=== PATIENT | female | born 1975 | race Caucasian/White ===

== ENCOUNTER → 2020-06-26 | Outpatient (CLI) | payer MEDICARE, OTHER ==
[~2020-06-26] MED LIST: ALBU90OI6 INH; BACL10 PO; CHOL10002 PO; CYCL10 PO; FENTANYL1 EAC1 TOP; FERROUS SULFATE PO; FLAX PO; FLUC150A PO; GLUC500 PO; Hair, Skin & N1 EACH PO; IRON150C PO; Klor-Con 1010 MEQ PO; LAMO100 PO; LAMO25 PO; LATUDA20 MG PO; LISHYD2025 PO; Lecithin-191200 MG PO; MIGRANAL INH; MORP15ER PO; MORP30 PO; NIAC250ER PO; NIAC500 PO; PREG150 PO; PRODEXEL PO; QNASL8.7 GM; RANI150 PO; TOPI100 PO; Tylenol325 MG PO; VITAMIN D PO; VITAMIN D-32000 UNIT PO; ZESTORETIC 20-251 EA; Zithromax250 MG PO; [UNRECOGNIZED DRUG - OTHER] IJ
== END | disposition home or self-care (01) ==
LOC: LAB SHORT 19:21 → LAB EV 19:21
DX: L02.415 Cutaneous abscess of right lower limb (principal)
CPT/HCPCS: 87070; 87075; 87077; 87147; 87186; 87205

== ENCOUNTER → 2021-06-03 | Outpatient (CLI) | payer MEDICARE, OTHER ==
[2021-06-03 16:57] LABS: BASOPHILS PERCENT AUTO 1 % (0-2); EOSINOPHILS ABSOLUTE AUTO 0.46 K/mm3 (0.00-0.68); EOSINOPHILS PERCENT AUTO 5 % (0-6); Hemoglobin 14.4 g/dL (11.5-16.0); IMMATURE GRAN ABSOLUTE AUTO 0.03 K/mm3 (0.00-0.10); IMMATURE GRAN PERCENT AUTO 0 % (0-1); LYMPHOCYTES ABSOLUTE AUTO 1.94 K/mm3 (0.84-5.20); LYMPHOCYTES PERCENT AUTO 23 % (21-46); MONOCYTES ABSOLUTE AUTO 0.65 K/mm3 (0.16-1.47); MONOCYTES PERCENT AUTO 8 % (4-13); Mean Corpuscular HGB 30.9 pg (26.0-34.0); Mean Corpuscular HGB Conc 32.7 g/dL (31.5-36.5); Mean Corpuscular Volume 94 fL (80-100); Mean Platelet Volume 9.5 fL (9.1-12.4); NEUTROPHILS PERCENT AUTO 63 % (41-73); Platelet Count 260 K/mm3 (150-400); RDW Coefficient Variation 14.4 % (11.7-14.2); RDW Standard Deviation 50.4 fL (35.1-46.3); Red Blood Cell Count 4.66 M/mm3 (3.80-5.20); White Blood Cell Count 8.58 K/mm3 (4.00-11.30)
[2021-06-03 17:10] LABS: Albumin, Blood 3.3 g/dL (3.4-5.0); Albumin/Globulin Ratio 0.9 (0.8-1.8); Bilirubin, Total 0.2 mg/dL (0.1-1.0); Bun/Creatinine Ratio 9.2 (12.0-20.0); Calcium, Blood 8.3 mg/dL (8.5-10.1); Creatinine, Blood 1.3 mg/dL (0.40-1.00); Globulin, Blood 3.5 g/dL (2.2-4.0); Potassium, Blood 3.8 mmol/L (3.5-5.5); Total Protein, Blood 6.8 g/dL (6.4-8.2)
== END | disposition home or self-care (01) ==
LOC: LAB SHORT 16:52 → LAB 16:52
PROVIDERS: Family Medicine
DX: I10 Essential (primary) hypertension (principal)
CPT/HCPCS: 80053; 85025

== ENCOUNTER 2021-12-27 21:07 | Emergency (ER) | payer OTHER ==
[~2021-12-27] VITALS: Ht 160 cm; Wt 74.8 kg
[2021-12-27 21:36] LABS: Source, Urine Clean Catch
[2021-12-27] MEDS ORDERED: BACL20 PO (21:40)
[2021-12-27 21:41] LABS: Bilirubin, Urine Neg (Neg); Blood, Urine Neg (Neg); Glucose Qualitative, Urine Neg (Neg); Ketones, Urine Neg (Neg); Leukocyte Esterase, Urine Neg (Neg); Nitrite, Urine Neg (Neg); Protein, Urine Neg (Neg); Specific Gravity, Urine 1.005 (1.003-1.022); Urobilinogen, Urine NORM (Normal)
[2021-12-27] MEDS ORDERED: [UNRECOGNIZED DRUG - OTHER] PO (21:44)
[2021-12-27] MEDS ORDERED: INDERAL XL80 M1 PO (21:45)
[2021-12-27] MEDS ORDERED: CELE200 PO (21:45)
[2021-12-27] MEDS ORDERED: [UNRECOGNIZED DRUG - OTHER] PO (21:47)
[2021-12-27 21:54] LABS: Appearance, Urine Clear (Clear); Color, Urine Yellow (P-Yellow)
[2021-12-27 21:56] LABS: BASOPHILS PERCENT AUTO 1 % (0-2); EOSINOPHILS ABSOLUTE AUTO 0.24 K/mm3 (0.00-0.68); EOSINOPHILS PERCENT AUTO 2 % (0-6); Hematocrit 41.6 % (33.0-51.0); Hemoglobin 13.5 g/dL (11.5-16.0); IMMATURE GRAN ABSOLUTE AUTO 0.02 K/mm3 (0.00-0.10); IMMATURE GRAN PERCENT AUTO 0 % (0-1); LYMPHOCYTES ABSOLUTE AUTO 1.76 K/mm3 (0.84-5.20); LYMPHOCYTES PERCENT AUTO 17 % (21-46); MONOCYTES ABSOLUTE AUTO 0.87 K/mm3 (0.16-1.47); MONOCYTES PERCENT AUTO 9 % (4-13); Mean Corpuscular HGB 30.7 pg (26.0-34.0); Mean Corpuscular HGB Conc 32.5 g/dL (31.5-36.5); Mean Corpuscular Volume 95 fL (80-100); Mean Platelet Volume 9.7 fL (9.1-12.4); NEUTROPHILS ABSOLUTE AUTO 7.15 K/mm3 (1.96-9.15); NEUTROPHILS PERCENT AUTO 70 % (41-73); Platelet Count 296 K/mm3 (150-400); RDW Coefficient Variation 13.6 % (11.7-14.2); RDW Standard Deviation 47.8 fL (35.1-46.3); White Blood Cell Count 10.14 K/mm3 (4.00-11.30)
[2021-12-27 22:09] LABS: Albumin, Blood 2.9 g/dL (3.4-5.0); Albumin/Globulin Ratio 0.8 (0.8-1.8); Bilirubin, Total 0.1 mg/dL (0.1-1.0); Bun/Creatinine Ratio 12.4 (12.0-20.0); Calcium, Blood 8.2 mg/dL (8.5-10.1); Creatinine, Blood 1.13 mg/dL (0.40-1.00); Globulin, Blood 3.6 g/dL (2.2-4.0); Potassium, Blood 4.1 mmol/L (3.5-5.5); Total Protein, Blood 6.5 g/dL (6.4-8.2)
== END 2021-12-28 02:00 | disposition home or self-care (01) ==
LOC: ER 21:07
PROVIDERS: Emergency Medicine
DX: N20.0 Calculus of kidney (principal); Z88.6 Allergy status to analgesic agent; Z88.8 Allergy status to other drugs, medicaments and biological substances; Z88.5 Allergy status to narcotic agent; Z79.899 Other long term (current) drug therapy; I10 Essential (primary) hypertension; G43.909 Migraine, unspecified, not intractable, without status migrainosus; F17.210 Nicotine dependence, cigarettes, uncomplicated
CPT/HCPCS: 74176; 80053; 81003; 85025; 96374; 96375; 99284-25; A9270; J1170; J1885; J2405; J7030

== ENCOUNTER 2022-05-12 11:06 | Emergency (ER) | payer OTHER ==
[~2022-05-12] VITALS: Ht 160 cm; Wt 70.3 kg
[~2022-05-12 11:06] MED LIST changes: +BACL20 PO; +CELE200 PO; +CEPH500 PO; +INDERAL XL80 M1 PO; +[UNRECOGNIZED DRUG - OTHER] PO; +[UNRECOGNIZED DRUG - OTHER] PO
[2022-05-12 13:27] LABS: BASOPHILS ABSOLUTE AUTO 0.09 K/mm3 (0.00-0.23); BASOPHILS PERCENT AUTO 1 % (0-2); EOSINOPHILS ABSOLUTE AUTO 0.31 K/mm3 (0.00-0.68); EOSINOPHILS PERCENT AUTO 4 % (0-6); Hematocrit 37.8 % (33.0-51.0); Hemoglobin 11.8 g/dL (11.5-16.0); IMMATURE GRAN ABSOLUTE AUTO 0.07 K/mm3 (0.00-0.10); IMMATURE GRAN PERCENT AUTO 1 % (0-1); LYMPHOCYTES ABSOLUTE AUTO 1.65 K/mm3 (0.84-5.20); LYMPHOCYTES PERCENT AUTO 19 % (21-46); MONOCYTES ABSOLUTE AUTO 0.73 K/mm3 (0.16-1.47); MONOCYTES PERCENT AUTO 9 % (4-13); Mean Corpuscular HGB 30.3 pg (26.0-34.0); Mean Corpuscular HGB Conc 31.2 g/dL (31.5-36.5); Mean Corpuscular Volume 97 fL (80-100); NEUTROPHILS ABSOLUTE AUTO 5.69 K/mm3 (1.96-9.15); NEUTROPHILS PERCENT AUTO 67 % (41-73); Platelet Count 414 K/mm3 (150-400); RDW Coefficient Variation 14.6 % (11.7-14.2); RDW Standard Deviation 51.3 fL (35.1-46.3); Red Blood Cell Count 3.89 M/mm3 (3.80-5.20); White Blood Cell Count 8.54 K/mm3 (4.00-11.30)
[2022-05-12 13:50] LABS: Albumin, Blood 2.6 g/dL (3.4-5.0); Albumin/Globulin Ratio 0.6 (0.8-1.8); Bilirubin, Total 0.2 mg/dL (0.1-1.0); Bun/Creatinine Ratio 14.7 (12.0-20.0); Calcium, Blood 8.3 mg/dL (8.5-10.1); Creatinine, Blood 1.16 mg/dL (0.40-1.00); Globulin, Blood 4.1 g/dL (2.2-4.0); Potassium, Blood 4.2 mmol/L (3.5-5.5); Total Protein, Blood 6.7 g/dL (6.4-8.2)
[2022-05-12] MEDS ORDERED: XARELTO15 MG PO (16:12)
== END 2022-05-12 16:30 | disposition home or self-care (01) ==
LOC: ER 11:06
PROVIDERS: Student in an Organized Health Care Education/Training Program
DX: I82.412 Acute embolism and thrombosis of left femoral vein (principal); I82.432 Acute embolism and thrombosis of left popliteal vein; I82.442 Acute embolism and thrombosis of left tibial vein; I82.452 Acute embolism and thrombosis of left peroneal vein; I82.492 Acute embolism and thrombosis of other specified deep vein of left lower extremity; I82.812 Embolism and thrombosis of superficial veins of left lower extremity; I10 Essential (primary) hypertension; F17.210 Nicotine dependence, cigarettes, uncomplicated; Z79.899 Other long term (current) drug therapy; Z88.6 Allergy status to analgesic agent; Z88.5 Allergy status to narcotic agent; Z88.8 Allergy status to other drugs, medicaments and biological substances
CPT/HCPCS: 71260; 80053; 85025; 93971; A9270; Q9967

== ENCOUNTER 2022-06-02 06:05 | Day surgery (SDC) | payer OTHER ==
[~2022-06-02] VITALS: Ht 160 cm; Wt 68.6 kg
[~2022-06-02 06:05] MED LIST changes: +XARELTO15 MG PO
--- NOTE | 2022-06-02 12:32 | NUR ---
PURSE STRING SUTURE REMOVED, SITE STABLE. PT GETTING DRESSED AT THIS TIME.
--- NOTE | 2022-06-02 12:41 | NUR ---
PT DRESSED, L POP SITE STABLE AND WITHOUT BLEEDING. DISCHARGE REVIEWED WITH PT, VERBALIZES UNDERSTANDING OF INSTRUCTIONS. SALINE LOCK REMOVED WITH CATHETER INTACT. MTM CALLED AND PICKUP ARRANGED FOR 1 PM. NO FURTHER QUESTIONS AT THIS TIME FROM PT.
--- NOTE | 2022-06-02 12:55 | NUR ---
PT DISCHARGED PER W/C. PT ALSO CALLED AND VOICEMAIL LEFT AND INSTRUCTED PT TO BE SURE TO TAKE BOTH DOSES OF HER XARELTO TODAY.
== END 2022-06-02 12:40 | disposition home or self-care (01) ==
LOC: MHTC 06:05
DX: I82.432 Acute embolism and thrombosis of left popliteal vein (principal); I82.412 Acute embolism and thrombosis of left femoral vein; I82.422 Acute embolism and thrombosis of left iliac vein; I82.442 Acute embolism and thrombosis of left tibial vein; I82.452 Acute embolism and thrombosis of left peroneal vein; I12.9 Hypertensive chronic kidney disease with stage 1 through stage 4 chronic kidney disease, or unspecified chronic kidney disease; N18.9 Chronic kidney disease, unspecified; J45.909 Unspecified asthma, uncomplicated; F17.210 Nicotine dependence, cigarettes, uncomplicated; Z88.8 Allergy status to other drugs, medicaments and biological substances; Z88.6 Allergy status to analgesic agent
CPT/HCPCS: 76937; 84703; 85347; A9270; C1725; C1753; C1757; C1769; C1876; C1887; C1894; J1100; J1644; J2370; J2405; J2704; J3010; J7030; Q9967

== ENCOUNTER 2022-12-04 19:16 | Inpatient (IN) | payer MEDICARE, OTHER ==
[~2022-12-04] VITALS: Ht 160 cm; Wt 53.0 kg
--- NOTE | 2022-12-04 02:57 | NUR ---
ASSUMED CARE PT ARRIVED ON UNIT RESPONDING ONLY TO PAINFUL STIMULI. WITH RR SITTING AROUND 4-7 W/ PERIODS OF APNEA. 10L ON THE NON-REBREATHER AND MOVED TO 3L NC W/ ET CO2; MAINTAINING SPO2 >92%. PUPILS WERE DILATED AT A 5-6 AND RESPONDED SLUGGISHLY. HR WAS BORDERLINE 50'S AND DIPPING INTO THE 40'S. LEVOPHED INITIALLY AT 5MCG/MIN AND ENDED UP BEING TITRATED UP TO 20MCG/MIN W/ VASOPRESSIN ALSO ADDED. CURRENTLY AT 15MCG/MIN IN ADDITION TO VASOPRESSIN W/ MAP >65. PT WAS SEEN BY DR. QUIJANO AND WAS GIVEN SEVERAL DOSES OF NARCAN W/ SOME EFFECT. CENTRAL LINE WAS PLACED. SEVERAL MEDICATIONS STARTED AND PT NOT CURRENTLY HAS A RR 13-15 W/ HR NSR IN THE 60'S. REYNOLDS CATHETER WAS PLACED W/ THICK (SLUDGE-LIKE) YELLOW/DARK YELLOW URINE.
[~2022-12-04 19:16] MED LIST changes: +ANORO ELLIPTA1 EAC1 INH; +CAMRESE LO TAB1 EAC1 PO; +DIHYDROERGO1 MG/1 M1 INH; -INDERAL XL80 M1 PO; -MIGRANAL INH; +MUPIROCIN22 G9 TOP; +Norco 5-325 Ta1 EACH PO; +PROP60 PO; +Ventolin/Prove6.7 GM INH; +XARELTO20 MG PO
[2022-12-04 20:14] LABS: BASOPHILS ABSOLUTE AUTO 0.06 K/mm3 (0.00-0.23); BASOPHILS PERCENT AUTO 0 % (0-2); EOSINOPHILS ABSOLUTE AUTO 0.07 K/mm3 (0.00-0.68); EOSINOPHILS PERCENT AUTO 1 % (0-6); Hematocrit 23.8 % (33.0-51.0); Hemoglobin 7.5 g/dL (11.5-16.0); IMMATURE GRAN ABSOLUTE AUTO 0.26 K/mm3 (0.00-0.10); IMMATURE GRAN PERCENT AUTO 2 % (0-1); LYMPHOCYTES ABSOLUTE AUTO 1.34 K/mm3 (0.84-5.20); LYMPHOCYTES PERCENT AUTO 9 % (21-46); MONOCYTES ABSOLUTE AUTO 1.07 K/mm3 (0.16-1.47); MONOCYTES PERCENT AUTO 7 % (4-13); Mean Corpuscular HGB 28.5 pg (26.0-34.0); Mean Corpuscular HGB Conc 31.5 g/dL (31.5-36.5); Mean Corpuscular Volume 91 fL (80-100); NEUTROPHILS ABSOLUTE AUTO 12.03 K/mm3 (1.96-9.15); NEUTROPHILS PERCENT AUTO 81 % (41-73); RDW Coefficient Variation 15.3 % (11.7-14.2); RDW Standard Deviation 50.5 fL (35.1-46.3); Red Blood Cell Count 2.63 M/mm3 (3.80-5.20); White Blood Cell Count 14.83 K/mm3 (4.00-11.30)
[2022-12-04 20:18] LABS: Mean Platelet Volume 10.3 fL (9.1-12.4); Platelet Count 461 K/mm3 (150-400)
[2022-12-04 20:47] LABS: Alanine Aminotransfer (ALT/SGP 18 U/L (12-78); Albumin, Blood 1.5 g/dL (3.4-5.0); Albumin/Globulin Ratio 0.3 (0.8-1.8); Alk Phos 95 U/L (50-136); Anion Gap 10 mmol/L (6-16); Aspartate Aminotrans (AST/SGOT 29 U/L (12-37); Bilirubin, Total 0.4 mg/dL (0.1-1.0); Blood Urea Nitrogen 54 mg/dL (8-24); Bun/Creatinine Ratio 30.3 (12.0-20.0); CO2, Blood 18 mmol/L (21-32); Calcium, Blood 8.4 mg/dL (8.5-10.1); Chloride, Blood 110 mmol/L (98-108); Creatinine, Blood 1.78 mg/dL (0.40-1.00); Globulin, Blood 5.2 g/dL (2.2-4.0); Glomerular Filtration Rate 35 (60-); Glucose, Blood 89 mg/dL (70-99); Potassium, Blood 3.2 mmol/L (3.5-5.5); Sodium, Blood 138 mmol/L (136-145); Total Protein, Blood 6.7 g/dL (6.4-8.2); Triiodothyronine, Free <0.50 pg/mL (2.18-3.98)
[2022-12-04 20:50] LABS: PCO2 Arterial 31.7 mmHg (35-45); PO2 Arterial 328 mmHg (80-100); pH Blood Arterial 7.32 (7.35-7.45)
[2022-12-04 21:08] LABS: Source, Urine Straight Cath
[2022-12-04 21:14] LABS: Appearance, Urine Turbid (Clear); Bilirubin, Urine Neg (Neg); Blood, Urine 5+ (Neg); Color, Urine Amber (P-Yellow); Glucose Qualitative, Urine Neg (Neg); Ketones, Urine 1+ (Neg); Leukocyte Esterase, Urine 3+ (Neg); Nitrite, Urine Neg (Neg); Protein, Urine 3+ (Neg); Urobilinogen, Urine NORM (Normal)
[2022-12-04 21:36] LABS: Bacteria Many /hpf; Squamous Epithelial Cells Rare /hpf (Few); White Blood Cells, Urine TNTC /hpf (0-5)
[2022-12-04 21:56] LABS: U Amphetamine Screen Not Detected; U Barbituate Screen Not Detected; U Benzodiazapine Screen Not Detected; U Buprenorphine Screen Not Detected; U Cannabinoids Screen Not Detected; U Cocaine Screen Not Detected; U Methadone Screen Not Detected; U Methamphetamine Screen Not Detected; U Opiates Screen Not Detected; U Oxycodone Screen Not Detected; U Phencyclidine Screen Not Detected; U Propoxyphene Screen Not Detected
[2022-12-04 23:38] LABS: Source, Urine Foley catheter
[2022-12-04 23:42] LABS: Appearance, Urine Cloudy (Clear); Bilirubin, Urine Neg (Neg); Blood, Urine 5+ (Neg); Color, Urine Yellow (P-Yellow); Glucose Qualitative, Urine Neg (Neg); Ketones, Urine 1+ (Neg); Leukocyte Esterase, Urine 3+ (Neg); Nitrite, Urine Pos (Neg); Protein, Urine 3+ (Neg); Specific Gravity, Urine 1.015 (1.003-1.022); Urobilinogen, Urine NORM (Normal)
[2022-12-04 23:59] LABS: White Blood Cells, Urine TNTC /hpf (0-5)
[2022-12-05] LABS: Amorphous Light (0-Heavy); Bacteria Many /hpf; Squamous Epithelial Cells Not Seen /hpf (Few)
[2022-12-05 01:23] LABS: PO2 Arterial 111 mmHg (80-100); pH Blood Arterial 7.33 (7.35-7.45)
--- NOTE | 2022-12-05 03:10 | NUR ---
UPDATE IN ADDITION TO THE PREVIOUS NOTE, W/ STIMULATION THE PT MAKES AN UNUSUAL MOVEMENT THAT THE ER DOCTOR THOUGHT WAS A SEIZURE PER REPORT. PT OPENS EYES WIDE AND CLOSES RHYTHMICALLY AND HAS OUTWARD POSTURING OF ARMS WHILE BENT 90 DEGREE'S. PT'S LEGS ALSO FLEX 90 DEGREE'S.
--- NOTE | 2022-12-05 03:15 | NUR ---
UPDATE DAUGHTERS AT BEDSIDE. ASKS QUESTIONS AND IS INTERESTED IN CARE BEING PERFORMED. HAS EXPRESSED DESIRE TO KEEP MOM FULL CODE AT THIS TIME.
[2022-12-05 03:56] LABS: BASOPHILS ABSOLUTE AUTO 0.05 K/mm3 (0.00-0.23); BASOPHILS PERCENT AUTO 0 % (0-2); EOSINOPHILS ABSOLUTE AUTO 0.01 K/mm3 (0.00-0.68); EOSINOPHILS PERCENT AUTO 0 % (0-6); Hematocrit 22.6 % (33.0-51.0); Hemoglobin 7.3 g/dL (11.5-16.0); IMMATURE GRAN ABSOLUTE AUTO 0.18 K/mm3 (0.00-0.10); IMMATURE GRAN PERCENT AUTO 1 % (0-1); LYMPHOCYTES ABSOLUTE AUTO 0.92 K/mm3 (0.84-5.20); LYMPHOCYTES PERCENT AUTO 5 % (21-46); MONOCYTES ABSOLUTE AUTO 1.11 K/mm3 (0.16-1.47); MONOCYTES PERCENT AUTO 7 % (4-13); Mean Corpuscular HGB 29.1 pg (26.0-34.0); Mean Corpuscular HGB Conc 32.3 g/dL (31.5-36.5); Mean Corpuscular Volume 90 fL (80-100); Mean Platelet Volume 10.2 fL (9.1-12.4); NEUTROPHILS ABSOLUTE AUTO 14.88 K/mm3 (1.96-9.15); NEUTROPHILS PERCENT AUTO 87 % (41-73); Platelet Count 481 K/mm3 (150-400); RDW Coefficient Variation 15.8 % (11.7-14.2); RDW Standard Deviation 52.1 fL (35.1-46.3); Red Blood Cell Count 2.51 M/mm3 (3.80-5.20); White Blood Cell Count 17.15 K/mm3 (4.00-11.30)
[2022-12-05 04:15] LABS: Albumin, Blood 1.9 g/dL (3.4-5.0); Albumin/Globulin Ratio 0.5 (0.8-1.8); Bilirubin, Total 0.6 mg/dL (0.1-1.0); Bun/Creatinine Ratio 30.6 (12.0-20.0); Calcium, Blood 7.5 mg/dL (8.5-10.1); Creatinine, Blood 1.57 mg/dL (0.40-1.00); Globulin, Blood 4.2 g/dL (2.2-4.0); Potassium, Blood 3.9 mmol/L (3.5-5.5); Total Protein, Blood 6.1 g/dL (6.4-8.2)
--- NOTE | 2022-12-05 05:49 | NUR ---
SHIFT SUMMARY PT CONTINUES TO ONLY RESPOND TO PAIN. APPEARS TO SOMEWHAT TRACK W/ HER EYES, BUT DOES NOT FOCUS ON HER SURROUNDINGS. SPO2 >92% ON 3L NC W/ ETCO2 @ 20. MAP >65 W/ LEVOPHED GTT @ 8MCG/MIN; VASOPRESSIN @ 0.04 UNITS/MIN. SODIUM BICARB GTT @ 125 MLS/HR, NARCAN GTT @ 1.5MG/HR. PT CONTINUES TO EXHIBIT ODD MOVEMENTS WHEN STIMULATED. UPPER AIRWAY SECRETIONS AUSCULTATED. BESIDES THE NEW POSSIBLE TRACKING W/ EYES AND UPPER AIRWAY SECRETIONS; NO OTHER ACUTE EVENTS HAVE OCCURED SINCE PREVIOUS NOTE. REYNOLDS CATHETER PATENT AND DRAINING TO GRAVITY.
[2022-12-05 08:40] LABS: PCO2 Arterial 34.6 mmHg (35-45); PO2 Arterial 99.3 mmHg (80-100); pH Blood Arterial 7.31 (7.35-7.45)
--- NOTE | 2022-12-05 13:50 | NUR ---
SHIFT UPDATE ASSUMED CARE OF PT @ 0700, BEDSIDE RECEIVED FROM LIBRA MUÑOZ. PT INITALLY ON 3LPM O2 VIA NC c SATS >90% BUT APPEARS TO BE ASPIRATING. NOT FOLLOWING COMMANDS, OPENING EYES BUT NOT TRACKING STAFF. DUE TO HIGH ASPIRATION RISK THE DECISION TO INTUBATE WAS MADE. 10MG ETOMIDATE @ 0706. 50MG ROCURONIUM @ 0707. PT INTUBATED WITH 8.0 ETT, 24CM AT GUM @ 0708 WITHOUT DIFFICULTY. OGT INSERTED PLACEMENT CONFIRMED BY DR QUIJANO, INITIALLY CLAMPED, NOW HAS VHP INFUSING @ 20ML/HR c GOAL OF 40ML/HR. NO BM. NARCAN GTT AND VASOPRESSIN STOPPED, MAP >65 c LOW DOSE LEVOPHED. SODIUM BICARB CONTINUES @ 125 ML/HR. 1L BOLUS OF LR INFUSING NOW. TEMP PROBE REYNOLDS PATENT, DRAINING DASHAWN URINE WITH SEDIMENT. PT SLOWLY WAKING UP THE DAY PROGRESSES BUT NOT FOLLOWING COMMANDS. NOW TRACKING STAFF IN ROOM, OPENING EYES SPONTANEOUSLY, PULLING AGAINST RESTRAINTS. FALLS TO SLEEP QUICKLY WITH DECREASED STIMULI.
--- NOTE | 2022-12-05 18:43 | NUR ---
SHIFT SUMMARY PT REMAINS INTUBATED c NO SEDATION. SLOWLY BECOMING MORE ALERT T/O DAY. OPENING EYES SPONTANEOUSLY, WILL NOW TRACK NURSE IN ROOM, CHRISTIANSON, NOT CONSISTENTLY SQUEEZING HANDS. VENT [id number]-QL-79/400/5/30% c SATS >90%. SMALL THCK WHITE SECRETIONS SUCTIONED VIA ETT. OGT c TF @ 30ML/HR, GOAL OF 40. NO BM. TEMP PROBE REYNOLDS DRAINING YELLOW URINE WITH SEDIMENT, 400ML OUT THIS SHIFT, TEMP INCREASING, MAX OF 100.5. PRN TYLENOL ORDERED, NONE GIVEN, FAN ON PATIENT NOW. BICARB GTT COMPLETE, LR NOW INFUSING @ 150/HR X 1 BAG. GOAL OF KEEPING PT OFF SEDATION T/O NIGHT, IF ABSOLUTELY NECESSARY, LOW DOSE PROPOFOL.
--- NOTE | 2022-12-05 23:00 | NUR ---
ASSUMED CARE AT 1900 PT LAYING IN BED INTUBATED WITH VENT SETTINGS AC/VC 16/400/5/30%; SMALL AMOUNT OF SECREATIONS FROM ETT. PT IS MORE ALERT; SHE IS ANSWERING Y/N QUESTIONS WITH HEAD NODS APPROPRIATLY; SHE DOES PULL AT RESTRAINTS AND REACHES FOR ETT WHEN OUT OF THEM; ONCE SHE SUCCESSFULLY DISCONNECTED ETT ATTEMPTING TO EXTUBATE BUT STOPPED; PROPFOL STARTED AND TITRATED UP TO 15MCG/KG/MIN; PT MORE COMFORTABLE NOW AND NOT REACHING FOR ETT. MAX TEMP 101; PRN TYLENOL GIVEN, TEMP NOW 98.8. HR 80'S. SBP 100'S WITH MAP 70-80'S; NO PRESSORS INFUSING. VHP INCREASED TO GOAL OF 40ML/HR; WATER FLUSHES Q4HR. REYNOLDS IN PLACE AND DRAINING TO GRAVITY. LR INFUSING THOUGH RIJ. SEE SHIFT ASSESSMENT FOR FULL ASSESSMENT.
[2022-12-06 05:14] LABS: Hematocrit 20.6 % (33.0-51.0); Hemoglobin 6.8 g/dL (11.5-16.0); Mean Corpuscular HGB 29.3 pg (26.0-34.0); Mean Corpuscular Volume 89 fL (80-100); Platelet Count 372 K/mm3 (150-400); RDW Coefficient Variation 15.9 % (11.7-14.2); RDW Standard Deviation 51.3 fL (35.1-46.3); Red Blood Cell Count 2.32 M/mm3 (3.80-5.20); White Blood Cell Count 19.88 K/mm3 (4.00-11.30)
[2022-12-06 05:42] LABS: Bun/Creatinine Ratio 26.2 (12.0-20.0); Calcium, Blood 7.5 mg/dL (8.5-10.1); Creatinine, Blood 1.41 mg/dL (0.40-1.00); Potassium, Blood 2.9 mmol/L (3.5-5.5)
--- NOTE | 2022-12-06 06:00 | NUR ---
UPDATE NOTIFIED DR QUIJANO REGARDING AM LABS, HGB 6.8 AND POTASSIUM 2.9. NEW ORDERS PROVIDED FOR 1 UNIT OF PRBC AND 20MEQ KCL IV X1.
--- NOTE | 2022-12-06 07:12 | NUR ---
END OF SHIFT SUMMARY NO ACUTE EVENTS OVERNIGHT. PT CONT TO BE INTUBATED WITH VENT SETTINGS 16/400/5/30%. SHE IS FOLLOWING DIRECTIONS, PULLING AT RESTRAINTS, AND ANSWERING Y/N QUESTIONS; PROPOFOL INFUSING AT 10MCG/KG/MIN. MAX TEMP 101.5; PRN TYLENOL GIVEN AND HELPFUL. HR 70'S. BP STABLE. TF INFUSING AT GOAL. REYNOLDS IN PLACE AND DRAINING TO GRAVITY. REPORT GIVEN TO DMITRIY SMYTH.
--- NOTE | 2022-12-06 11:30 | NUR ---
SHIFT ASSESSMENT ASSUMED CARE OF PT @ 0700, BEDSIDE REPORT RECEIVED FROM LIBRA DELCID. PT INTUBATED AND SEDATED INITIALLY, VENT SETTINGS AC-16/400/30/5 c SATS>90%. PT GIVEN SED VACATION FOR SBT, PT DID WELL OFF SEDATION. ABLE TO FOLLOW ALL COMMANDS, CHRISTIANSON, AND MAINTAINED O2 SATS <90% DURING TRIAL. PT BACK ON PRIOR VENT SETTINGS UNTIL CHIEF LIBRARIAN EXTENSION DEPARTMENT ARRIVED. PT CURRENTLY OFF SEDATION, CHIEF LIBRARIAN EXTENSION DEPARTMENT TRIALING VENT SETTINGS IN PREPARATION FOR EXTUBATION. PT FOLLOWING ALL COMMANDS, USING CALL LIGHT, SITTING UPRIGHT WATCHING TV. ADMINISTERED 1 UNIT OF PRBC'S THIS AM. CURRENTLY RECEIVING A TOTAL OF 60MEQ'S OF KCL. TF @ GOAL. TEMP PROBE REYNOLDS DRAINING YELLOW URINE WITH SEDIMENT, AFEBRILE AT THIS TIME. PTS DAUGHTER AND MOTHER UPDATED OF PT CONDITION.
[2022-12-06 17:10] LABS: Hematocrit 23.4 % (33.0-51.0); Hemoglobin 7.6 g/dL (11.5-16.0)
--- NOTE | 2022-12-06 18:22 | NUR ---
SHIFT SUMMARY PT REMAINS INTUBATED AND OFF SEDATION, DID NOT RECEIVE ANY SEDATIVES TODAY. SLOWLY BECOMING MORE ALERT T/O DAY. PT NOW ABLE TO FOLLOW ALL COMMANDS, ASSISTED WITH TURN THIS EVENING, WRITING TO DAUGHTER AT BEDSIDE. VENT SETTINGS NOW SPONT-5/5 @ 30%, SATS >95%. HOPEFULLY EXTUBATE TOMORROW. TF CONTINUES AT GOAL, NO BM THIS SHIFT. TEMP PROBE REYNOLDS DRAINING YELLOW URINE WITH DECREASING AMNT OF SEDIMENT, T-MAX OF 100.6, NO MEDS GIVEN FOR FEVER. NO OTHER ACUTE CHANGES.
--- NOTE | 2022-12-06 22:51 | NUR ---
ASSUMED CARE AT 1900 PT LAYING IN BED INTUBATED WITH VENT SETTINGS SPONT 5/5; PT PULLING Vt 400'S, RR 20'S, SPO2 100%. PT IS MORE ALERT THAN PREVIOUS DAY; SHE IS ANSWERING Y/N QUESTIONS APPROPRIATLY WITH HEAD NODS; SHE SHOWS UNDERSTANDING OF NOT PULLING ETT SO RESTRAINTS HAVE BEEN D/C; FOLLOWING DIRECTIONS WELL AND ATTEMPTING TO HELP WITH REPOSITIONING; GENERALIZED WEAKNESS NOTED. TMAX 101.5; PRN TYLENOL GIVEN AND HELPFUL. HR 90-100; BP STABLE, SBP 120'S. TF INFUSING VIA OG AT 40ML/HR (GOAL) WITH 30ML FLUSHES Q4H. REYNOLDS IN PLACE AND DRAINING TO GRAVITY; CLOUDINESS IMPROVING. SEE SHIFT ASSESSMENT FOR FULL ASSESSMENT.
--- NOTE | 2022-12-07 04:03 | NUR ---
UPDATE NOTIFIED DR QUIJANO REGARDING POSITIVE BLOOD CULTURES GRAM NEGATIVE BACILLI. PT CURRENTLY ON CEFEPIME TWICE A DAY. NO NEW ORDERS PROVIDED.
[2022-12-07 04:41] LABS: Hematocrit 22.4 % (33.0-51.0); Hemoglobin 7.2 g/dL (11.5-16.0); Mean Corpuscular HGB Conc 32.1 g/dL (31.5-36.5); Mean Corpuscular Volume 90 fL (80-100); Mean Platelet Volume 10.3 fL (9.1-12.4); Platelet Count 295 K/mm3 (150-400); RDW Coefficient Variation 15.6 % (11.7-14.2); RDW Standard Deviation 50.7 fL (35.1-46.3); Red Blood Cell Count 2.48 M/mm3 (3.80-5.20); White Blood Cell Count 20.59 K/mm3 (4.00-11.30)
[2022-12-07 05:05] LABS: Bun/Creatinine Ratio 25.7 (12.0-20.0); Calcium, Blood 7.7 mg/dL (8.5-10.1); Creatinine, Blood 1.4 mg/dL (0.40-1.00); Magnesium, Blood 1.7 mg/dL (1.6-2.4); Percent Saturation 6.6 % (15.0-50.0); Potassium, Blood 3.7 mmol/L (3.5-5.5)
--- NOTE | 2022-12-07 06:30 | NUR ---
END OF SHIFT SUMMARY NO ACUTE EVENT OVERNIGHT. PT CONT TO BE CALM AND COOPERATIVE WITH CARE; RESTRAINTS OFF ALL NIGHT. MAX TEMP 101.2; TYLENOL GIVEN AND HELPFUL. VENT SETTINGS SPONT 5/5, FIO2 30%, RR 15-20, SPO2 >98%. HR 90'S. SBP 110-120'S. VHP INFUSING VIA OG AT GOAL. REYNOLDS IN PLACE AND DRAINING. RIJ SALINE LOCKED. WILL REPORT TO AM RN WHEN AVAILABLE.
--- NOTE | 2022-12-07 08:27 | NUR ---
SHIFT ASSESSMENT ASSUMED CARE OF PT @ 0700, BEDSIDE REPORT RECEIVED FROM LIBRA DELCID. PT INTUBATED, OFF SEDATION, ON SPONT-02/05 @ 30% c SATS >95%. PT OUT OF RESTRAINTS, ALERT, FOLLOWING COMMANDS, DEMONSTRATES UNDERSTANDING RELATED TO NOT PULLING AT LINES OR ETT. ADJUSTING SELF IN BED & ASSISTING WITH HARD TURNS. CALL LIGHT IN PTS HAND, UTILIZING APPROPRIATELY. OGT c TF @ GOAL, NO BM YET, HAVING INTERMITTENT ABD PAIN, NONE AT THIS TIME. TEMP PROBE REYNOLDS DRAINING YELLOW URINE, SCANT SEDIMENT. TEMP DOWN TO 100.3 AFTER ACETAMINOPHEN.
--- NOTE | 2022-12-07 10:33 | NUR ---
UPDATE PT EXTUBATED @ 0947 TO RA c SATS >95%. PT HAS STRONG COUGH, FOLLOWING DIRECTIONS, ALERT AND ORIENTED. BEDSIDE SWALLOW EVAL COMPLETE, WILL CONTACT HOSPITALIST FOR DIETARY PLANS. CALL LIGHT IN REACH.
--- NOTE | 2022-12-07 17:22 | NUR ---
SHIFT SUMMARY PT REMAINS A&OX4, FOLLOWING COMMANDS, CHRISTIANSON. ON RA c SATS >95%. REMAINS WEAK BUT ABLE TO FEED SELF, TOLERATING FOOD AND DRINK. NO N/V. PT HAS NOT HAD A BM THIS SHIFT. HAVE NOT HAD PT OUT OF BED YET DUE TO WEAKNESS. TEMP PROBE REYNOLDS DRAINING YELLOW URINE WITH SEDIMENT, TEMP OF 99. CENTRAL LINE REMOVED. 20 GA PERIPHERAL IV ESTABLISHED IN R HAND. FULL CHG BEDBATH COMPLETE. UPDATED PTS DAUGHTER OF TRANSFER TO MEDICAL FLOOR.
--- NOTE | 2022-12-07 18:01 | NUR ---
TRANSFER PATIENT TRANSFERED FROM ICU TO ROOM 340 AT 1800. PATIENT SETTLED INTO ROOM. PATIENT IS A&O X4 BUT SLOW TO RESPOND. PATIENT AUGHTERS AT BEDSIDE. PATIENT ORIENTED TO CALL LIGHT AND TV CONTROL. PATIENT REYNOLDS IS PATENT AND DRAINING TO GRAVITY. IV TO RIGHT HAND FLUSHES WITHOUT DIFFICULTY. PATIENT EATING DINNER WITHOUT ISSUE, BUT DOES REPORT BEING WEAK. PATIENT IS PLEASANT AND COOPERATIVE WITH CARE.
--- NOTE | 2022-12-08 05:02 | NUR ---
SHIFT SUMMARY 47 YR F ADMITTED ON 12/04/22 FOR ANEMIA/UROSEPSIS. FULL CODE. NO ACUTE CHANGES THIS SHIFT. PT C/O HAGEN AND WAS GIVEN TYLENOL PER EMAR. SHE HAS BEEN PLEASANT AND COOPERATIVE THIS SHIFT. SHE STATES THAT HER THROAT IS SORE FROM BEING INTUBATED. PER ENVIRONMENTAL ENGINEERING MANAGER, SHE IS ST @ 109. SHE APPEARS TO BE RESTING COMFORTABLY AND HAS SLEPT FOR MOST OF THIS SHIFT.
[2022-12-08 05:27] LABS: BASOPHILS ABSOLUTE AUTO 0.08 K/mm3 (0.00-0.23); BASOPHILS PERCENT AUTO 0 % (0-2); EOSINOPHILS ABSOLUTE AUTO 0.14 K/mm3 (0.00-0.68); EOSINOPHILS PERCENT AUTO 1 % (0-6); Hematocrit 23.8 % (33.0-51.0); Hemoglobin 7.6 g/dL (11.5-16.0); IMMATURE GRAN ABSOLUTE AUTO 0.62 K/mm3 (0.00-0.10); IMMATURE GRAN PERCENT AUTO 3 % (0-1); LYMPHOCYTES ABSOLUTE AUTO 1.38 K/mm3 (0.84-5.20); LYMPHOCYTES PERCENT AUTO 7 % (21-46); MONOCYTES ABSOLUTE AUTO 1.75 K/mm3 (0.16-1.47); MONOCYTES PERCENT AUTO 9 % (4-13); Mean Corpuscular HGB 28.5 pg (26.0-34.0); Mean Corpuscular HGB Conc 31.9 g/dL (31.5-36.5); Mean Corpuscular Volume 89 fL (80-100); Mean Platelet Volume 10.3 fL (9.1-12.4); NEUTROPHILS ABSOLUTE AUTO 15.78 K/mm3 (1.96-9.15); NEUTROPHILS PERCENT AUTO 80 % (41-73); Platelet Count 274 K/mm3 (150-400); RDW Coefficient Variation 15.9 % (11.7-14.2); RDW Standard Deviation 51.8 fL (35.1-46.3); Red Blood Cell Count 2.67 M/mm3 (3.80-5.20); White Blood Cell Count 19.75 K/mm3 (4.00-11.30)
[2022-12-08 07:16] LABS: Bun/Creatinine Ratio 24.3 (12.0-20.0); Calcium, Blood 7.9 mg/dL (8.5-10.1); Creatinine, Blood 1.48 mg/dL (0.40-1.00); Magnesium, Blood 2.2 mg/dL (1.6-2.4); Phosphorus, Blood 1.4 mg/dL (2.5-4.9); Potassium, Blood 4.1 mmol/L (3.5-5.5)
--- NOTE | 2022-12-08 18:24 | NUR ---
SHIFT SUMMARY PATIENT REPORTS PAIN IN LUQ. PATIENT MEDICATED X2 FOR NASUEA. PATIENT DENIES SHORTNESS OF BREATH. PATIENT IS BEDREST DUE TO WEAKNESS AND INABILITY TO STAND. OT WORKED WITH PATIENT TODAY, BUT PATIENT DID NOT WANT TO WORK WITH PT DUE TO BEING TIRED. PATIENT SLEPT MOST OF DAY. PATIENT ATE 100% OF BREAKFAST. PATIENT DAUGHTER UPDATED. REYNOLDS IS PATENT AND DRAINING TO GRAVITY. PATIENT IS PLEASANT AND COOPERATIVE WITH CARE.
[2022-12-08] MEDS ORDERED: AMETHIA 0.15-01 EAC1 PO (23:05)
[2022-12-08] MEDS ORDERED: PROPRANOLOL HCL60 MG PO (23:06)
[2022-12-08] MEDS ORDERED: CELEBREX200 MG PO (23:10)
[2022-12-08] MEDS ORDERED: FLUTICASONE PRO16 GM (23:10)
[2022-12-09 05:57] LABS: Hematocrit 22.1 % (33.0-51.0); Mean Corpuscular HGB 28.8 pg (26.0-34.0); Mean Corpuscular HGB Conc 31.7 g/dL (31.5-36.5); Mean Corpuscular Volume 91 fL (80-100); Platelet Count 265 K/mm3 (150-400); RDW Coefficient Variation 15.9 % (11.7-14.2); RDW Standard Deviation 52.9 fL (35.1-46.3); Red Blood Cell Count 2.43 M/mm3 (3.80-5.20); White Blood Cell Count 16.39 K/mm3 (4.00-11.30)
--- NOTE | 2022-12-09 05:57 | NUR ---
CARE TRAINER SUMMARY PT VERY LETHARGIC/SLEEPY T/O MOST OF SHIFT. PT C/O OF NAUSEA AND LOW GRADE FEVER; MED P/EMAR. PT ASKING QUESTIONS ABOUT CURRENT ILLNESS AND WANTING TO KNOW WHEN SOMEONE CAN EXPLAIN; PT DOES NOT RECALL PREVIOUS CONVERSATIONS WITH DOCTOR. PT C/O PAIN IN RLQ; ABD FIRM AND SLIGHTLY DISTENDED IN THAT AREA. PT ABLE TO MAKE KNEEDS KNOWN. PT TOLERATED HALF SANDWICH SNACK. CALL LIGHT ACCESSIBLE. PT ON BED REST. REYNOLDS IN PLACE; PATENT AND DRAINING TO GRAVITY.
[2022-12-09 06:44] LABS: Albumin, Blood 1.1 g/dL (3.4-5.0); Anion Gap 4 mmol/L (6-16); Blood Urea Nitrogen 38 mg/dL (8-24); Bun/Creatinine Ratio 24.4 (12.0-20.0); CO2, Blood 23 mmol/L (21-32); Calcium, Blood 7.9 mg/dL (8.5-10.1); Chloride, Blood 113 mmol/L (98-108); Creatinine, Blood 1.56 mg/dL (0.40-1.00); Glomerular Filtration Rate 41 (60-); Glucose, Blood 88 mg/dL (70-99); Phosphorus, Blood 3.6 mg/dL (2.5-4.9); Potassium, Blood 3.7 mmol/L (3.5-5.5); Sodium, Blood 140 mmol/L (136-145)
--- NOTE | 2022-12-09 18:46 | NUR ---
SHIFT SUMMARY PT A/O X2-3 AND FORGETFULL. SHE APPEARS VERY WEAK AND FATIGUED. TREATED PER EMR FOR MIGRAINES. PT C/O FLANK PAIN AND HAD CT OF HER ABD THIS SHIFT. CT FOUND A HEMATOMA WHICH IS NON-SURGICAL AT THIS TIME. VSS. RESTING COMFORTABLY IN BED WITH HER CALL LIGHT IN REACH.
[2022-12-10 05:33] LABS: Hematocrit 24.7 % (33.0-51.0); Hemoglobin 7.7 g/dL (11.5-16.0); Mean Corpuscular HGB 28.6 pg (26.0-34.0); Mean Corpuscular HGB Conc 31.2 g/dL (31.5-36.5); Mean Corpuscular Volume 92 fL (80-100); Mean Platelet Volume 10.9 fL (9.1-12.4); Platelet Count 285 K/mm3 (150-400); RDW Coefficient Variation 15.8 % (11.7-14.2); RDW Standard Deviation 53.1 fL (35.1-46.3); Red Blood Cell Count 2.69 M/mm3 (3.80-5.20); White Blood Cell Count 19.01 K/mm3 (4.00-11.30)
[2022-12-10 05:55] LABS: Albumin, Blood 1.2 g/dL (3.4-5.0); Albumin/Globulin Ratio 0.3 (0.8-1.8); Bilirubin, Total 0.3 mg/dL (0.1-1.0); Bun/Creatinine Ratio 20.2 (12.0-20.0); Calcium, Blood 8.1 mg/dL (8.5-10.1); Creatinine, Blood 1.68 mg/dL (0.40-1.00); Globulin, Blood 4.7 g/dL (2.2-4.0); Phosphorus, Blood 2.6 mg/dL (2.5-4.9); Total Protein, Blood 5.9 g/dL (6.4-8.2)
--- NOTE | 2022-12-10 06:43 | NUR ---
RESPITE COORDINATOR SUMMARY: A&Ox4. PLEASANT AND COOPERATIVE WITH CARE FOR MOST OF SHIFT. HOWEVER, REPORTED TO BE RUNNING A FEVER THIS MORNING OF 102.9 AND ICE PACKS WERE APPLIED TO HER NECK, AXILLARY AND BILATERAL POPLITEAL REGIONS WITH WHICH SHE BECAME UPSET AND THREW ACROSS THE ROOM. ALSO TOLD FIELD SCOUT SHE WAS UNABLE TO MOVE HERSELF, WHICH SHE HAD BEEN DOING THE MAJORITY OF THE SHIFT WELL. CHARGE NOTIFIED. C/O INDIGESTION AND REFLUX LAST NIGHT; OBTAINED ORDER FOR TUMS PRN q6h. SHE REQUESTED TO CONTINUE BACLOFEN 40mg (HOME MED). PER JOSSELINE DYE TO CONTINUE AT 20MG LAST NIGHT AND TO DISCUSS CONTINUING 40MG w/ PRIMARY TODAY. LABS DRAWN TODAY; NO CRITICAL RESULTS RECEIVED AT THIS TIME. WILL REPORT TO ONCOMING RN.
--- NOTE | 2022-12-10 18:40 | NUR ---
SHIFT SUMMARY: PT A/O X 3, 2 ASSIST FOR TX, PLEASANT AND COOPERATIVE WITH CARE TODAY. PT WAS AFEBRILE MOST OF TODAY AND DEVELOPED LOW GRADE FEVER IN THE EVENING WITH TYLENOL INEFFECTIVE. PROVIDED COOLING PAD. PT HAD NO REPORTS OF MIGRAINE HAGEN TODAY. SHE WORKED WITH PT BUT DECLINED OT. PT HAD NO OTHER COMPLAINTS OR CONCERNS THROUGHOUT THE DAY.
--- NOTE | 2022-12-11 02:46 | NUR ---
PT NOTED TO BE RUNNING FEVER OF 103.9. APAP ADMINISTERED AND COOLING BLANKET APPLIED.
[2022-12-11 05:52] LABS: Hematocrit 20.5 % (33.0-51.0); Hemoglobin 6.5 g/dL (11.5-16.0); Mean Corpuscular HGB 28.8 pg (26.0-34.0); Mean Corpuscular HGB Conc 31.7 g/dL (31.5-36.5); Mean Corpuscular Volume 91 fL (80-100); Mean Platelet Volume 10.7 fL (9.1-12.4); Platelet Count 284 K/mm3 (150-400); RDW Coefficient Variation 15.6 % (11.7-14.2); RDW Standard Deviation 52.1 fL (35.1-46.3); Red Blood Cell Count 2.26 M/mm3 (3.80-5.20); White Blood Cell Count 19.98 K/mm3 (4.00-11.30)
[2022-12-11 06:23] LABS: Albumin, Blood 1.2 g/dL (3.4-5.0); Anion Gap 6 mmol/L (6-16); Blood Urea Nitrogen 29 mg/dL (8-24); Bun/Creatinine Ratio 17.7 (12.0-20.0); CO2, Blood 24 mmol/L (21-32); Chloride, Blood 110 mmol/L (98-108); Creatinine, Blood 1.64 mg/dL (0.40-1.00); Glomerular Filtration Rate 38 (60-); Glucose, Blood 101 mg/dL (70-99); Magnesium, Blood 1.9 mg/dL (1.6-2.4); Phosphorus, Blood 3.8 mg/dL (2.5-4.9); Potassium, Blood 3.7 mmol/L (3.5-5.5); Sodium, Blood 140 mmol/L (136-145)
--- NOTE | 2022-12-11 06:55 | NUR ---
EXERCISE SPECIALIST SUMMARY: A&Ox3-4. CALLS APPROPRIATELY AND COMMUNICATES NEEDS MOSTLY EFFECTIVELY. UNDERESTIMATES ABILITIES AND LACKS INSIGHT AND JUDGMENT. REYNOLDS PATENT AND DRAINING TO GRAVITY. IV PATENT AND SALINE LOCKED. NOTED TO BERUNNING FEVER OF 103.9 T/O NIGHT; PRN APAP ADMINISTERED AND COOLIN BLANKET APPLIED, BRINGING DOWN TO 100.6. ALSO NOTED TO HAVE HGB OF 6.5 THIS AM. UNABLE TO CONTACT PROVIDER. CONTINUES TO C/O ACID REFLUX AND REQUESTS TUMS FAIRLY ROUTINELY. REPORT TO MOJGAN SMYTH.
[2022-12-11 17:38] LABS: Hematocrit 24.8 % (33.0-51.0); Hemoglobin 7.9 g/dL (11.5-16.0); Mean Corpuscular HGB 28.7 pg (26.0-34.0); Mean Corpuscular HGB Conc 31.9 g/dL (31.5-36.5); Mean Corpuscular Volume 90 fL (80-100); Mean Platelet Volume 10.3 fL (9.1-12.4); Platelet Count 328 K/mm3 (150-400); RDW Standard Deviation 56.2 fL (35.1-46.3); Red Blood Cell Count 2.75 M/mm3 (3.80-5.20); White Blood Cell Count 19.54 K/mm3 (4.00-11.30)
--- NOTE | 2022-12-11 19:58 | NUR ---
SHIFT SUMMARY: PT A/O X 4, BEDREST DUE TO DIZZINESS AND WEAKNESS WITH ATTEMPTS OOB. PT RECEIVED 1 UNIT PRBC DUE TO HGB 6.5. JOHN WELL. HGB NOW 7.9. PT CONTINUES TO REPORT HEARTBURN WORSE AFTER EATING DINNER. TUMS EFFECTIVE WHEN GIVEN BUT DOES NOT ALWAYS LAST 4 HOURS. PT REYNOLDS CATHETER REMOVED TODAY. NO URINE OUTPUT AT THIS TIME.PT FEBRILE OFF AND ON TODAY. LAST TEMP TAKEN WAS 99.9. PT HAS BEEN PLEASANT AND COOPERATIVE WITH CARE. DAUGHTER SERENITY UPDATED TODAY.
[2022-12-11 23:05] LABS: Hematocrit 23.8 % (33.0-51.0); Hemoglobin 7.6 g/dL (11.5-16.0); Mean Corpuscular HGB 28.5 pg (26.0-34.0); Mean Corpuscular HGB Conc 31.9 g/dL (31.5-36.5); Mean Corpuscular Volume 89 fL (80-100); Mean Platelet Volume 10.2 fL (9.1-12.4); Platelet Count 333 K/mm3 (150-400); RDW Coefficient Variation 17.1 % (11.7-14.2); RDW Standard Deviation 56.8 fL (35.1-46.3); Red Blood Cell Count 2.67 M/mm3 (3.80-5.20)
--- NOTE | 2022-12-12 05:47 | NUR ---
SHIFT SUMMARY PT A&O X 4, BEDSIDE REPORT DONE- REPORT THAT PT IS A NO VOID SINCE REYNOLDS D/C BEFORE DINNER- PT URINATED MULTIPLE TIMES T/O THE SHIFT WITHOUT PROBLEMS- PT 1 ASSIST TO BSC- IV INFUSING WITHOUT PROBLEMS- PT C/O MIGRAINE AND NAUSEA AT BEGINNING OF SHIFT, MEDICATED FOR BOTH - PT SLEPT T/O NIGHT- PT CALLED APPROPRIATE, BED LOW POSITION, CALL LIGHT WITHIN REACH, BED ALARM IN PLACE
[2022-12-12 05:48] LABS: Hematocrit 26.1 % (33.0-51.0); Hemoglobin 8.1 g/dL (11.5-16.0); Mean Corpuscular HGB 28.1 pg (26.0-34.0); Mean Corpuscular Volume 91 fL (80-100); Mean Platelet Volume 10.4 fL (9.1-12.4); Platelet Count 385 K/mm3 (150-400); RDW Coefficient Variation 17.2 % (11.7-14.2); RDW Standard Deviation 57.2 fL (35.1-46.3); Red Blood Cell Count 2.88 M/mm3 (3.80-5.20); White Blood Cell Count 23.33 K/mm3 (4.00-11.30)
[2022-12-12 06:23] LABS: Albumin, Blood 1.3 g/dL (3.4-5.0); Anion Gap 4 mmol/L (6-16); Blood Urea Nitrogen 28 mg/dL (8-24); Bun/Creatinine Ratio 17.4 (12.0-20.0); CO2, Blood 23 mmol/L (21-32); Calcium, Blood 7.9 mg/dL (8.5-10.1); Chloride, Blood 110 mmol/L (98-108); Creatinine, Blood 1.61 mg/dL (0.40-1.00); Glomerular Filtration Rate 39 (60-); Glucose, Blood 98 mg/dL (70-99); Magnesium, Blood 2.3 mg/dL (1.6-2.4); Phosphorus, Blood 2.9 mg/dL (2.5-4.9); Potassium, Blood 4.1 mmol/L (3.5-5.5); Sodium, Blood 137 mmol/L (136-145)
[2022-12-12 15:41] LABS: Hematocrit 23.2 % (33.0-51.0); Hemoglobin 7.3 g/dL (11.5-16.0); Mean Corpuscular HGB 28.3 pg (26.0-34.0); Mean Corpuscular HGB Conc 31.5 g/dL (31.5-36.5); Mean Corpuscular Volume 90 fL (80-100); Mean Platelet Volume 10.6 fL (9.1-12.4); Platelet Count 374 K/mm3 (150-400); RDW Standard Deviation 56.4 fL (35.1-46.3); Red Blood Cell Count 2.58 M/mm3 (3.80-5.20); White Blood Cell Count 18.34 K/mm3 (4.00-11.30)
--- NOTE | 2022-12-12 16:16 | NUR ---
DR LAMB NOTIFIED OF MONICA DUPLEX RESULTS AND LATEST LAB VALUES INCLUDING ESR WESTERGREN AND CRP. SEE LABS
--- NOTE | 2022-12-12 17:34 | NUR ---
SHIFT SUMMARY PT AXO, COOPERATIVE WITH CARE THOUGH PT MAKES MULTIPLE DEMANDS OF CARE FREQUENTLY. AT START OF SHIFT PT TEMP WAS 103.3, TYLENOL GIVEN PER EMAR. DR LAMB NOTIFIED AT 0842, ADDITIONAL DOSE OF TYLENOL ORDERED AND GIVEN. ICE PACKS PLACED PER VERBAL ORDER WELL THOUGH PT REFUSED AND BECAME ANGRY AND DEMANDED USE OF COOL K-PAD INSTEAD. BLANKETS REMOVED WITH INITIAL DISCOVER OF FEVER. PT AFEBRILE AT THIS TIME. NO BM DOCUMENTED THIS HOSPITALIZATION, THIS NURSE MEDICATED PER EMAR. VL DUPLEX COMPLETED THIS SHIFT, SEE IMAGING. SEE LABS WELL. IV PATENT AND INFUSING PER EMAR. PT COMPLAINING OF CHILLS AT THIS TIME, ORAL TEMP CHECKED, AFEBRILE. BED IN LOW POSITION, CALL LIGHT WITHIN REACH. PT UP TO BSC X3 THIS SHIFT, UP TO CHAIR FOR BREAKFAST THEN RIGHT BACK TO BED. THIS NURSE ENCOURAGED MOBILITY.
[2022-12-12 23:21] LABS: Hematocrit 23.4 % (33.0-51.0); Hemoglobin 7.4 g/dL (11.5-16.0); Mean Corpuscular HGB 28.5 pg (26.0-34.0); Mean Corpuscular HGB Conc 31.6 g/dL (31.5-36.5); Mean Corpuscular Volume 90 fL (80-100); Mean Platelet Volume 9.8 fL (9.1-12.4); Platelet Count 405 K/mm3 (150-400); RDW Coefficient Variation 16.8 % (11.7-14.2); RDW Standard Deviation 55.8 fL (35.1-46.3)
--- NOTE | 2022-12-13 05:28 | NUR ---
SHIFT SUMMARY PT A&O X 4, PT REQUESTED TYLENOL AT BEGINNING OF SHIFT FOR HEADACHE- IV INFUSING IN LEFT HAND WITHOUT PROBLEMS, PT REPORTED BLOOD WHEN WIPING AFTER URINATING- SMALL AMOUNT OF BLOOD NOTES ON TP IN TRASH- BED ALARM IN PLACE- PT FORGETFUL AND SETS OFF BED ALARM GETTING TO BSC- BED LOW POSITION, CALL LIGHT IN REACH
[2022-12-13 07:31] LABS: Hematocrit 23.9 % (33.0-51.0); Hemoglobin 7.5 g/dL (11.5-16.0); Mean Corpuscular HGB 28.3 pg (26.0-34.0); Mean Corpuscular HGB Conc 31.4 g/dL (31.5-36.5); Mean Corpuscular Volume 90 fL (80-100); Mean Platelet Volume 9.6 fL (9.1-12.4); Platelet Count 434 K/mm3 (150-400); RDW Coefficient Variation 16.7 % (11.7-14.2); RDW Standard Deviation 55.6 fL (35.1-46.3); Red Blood Cell Count 2.65 M/mm3 (3.80-5.20); White Blood Cell Count 19.23 K/mm3 (4.00-11.30)
[2022-12-13 07:48] LABS: Albumin, Blood 1.3 g/dL (3.4-5.0); Anion Gap 2 mmol/L (6-16); Blood Urea Nitrogen 22 mg/dL (8-24); Bun/Creatinine Ratio 15.9 (12.0-20.0); CO2, Blood 24 mmol/L (21-32); Calcium, Blood 7.9 mg/dL (8.5-10.1); Chloride, Blood 114 mmol/L (98-108); Creatinine, Blood 1.38 mg/dL (0.40-1.00); Glomerular Filtration Rate 47 (60-); Glucose, Blood 100 mg/dL (70-99); Magnesium, Blood 1.9 mg/dL (1.6-2.4); Phosphorus, Blood 2.6 mg/dL (2.5-4.9); Potassium, Blood 4.1 mmol/L (3.5-5.5); Sodium, Blood 140 mmol/L (136-145)
--- NOTE | 2022-12-13 17:56 | NUR ---
SHIFT SUMMARY: PT A&O X3-4. HAS HAD SOME CONFUSION THIS MORNING NOT REMEMBERING THE REASON FOR BEING HERE. PT HAS BEEN PLEASANT AND COOPERATIVE WITH CARE. NO ACUTE CHANGES WITH PT THIS SHIFT. PT HAS SPIKED 2 TEMPS; ONE OF 102.9 AND THE OTHER OF 101.2. TREATING WITH TYLENOL FOR FEVERS ABOVE 101.0. PT HAS BEEN PRETTY WEAK TODAY. STATES SHE HAD A HARD TIME GETTING TO BSC AND BACK TO BED. NS RUNNING @ 100/HR. BED ALARM ON. CALL LIGHT IN REACH. BED IN LOWEST POSITION. WILL CONTINUE TO MONITOR.
--- NOTE | 2022-12-13 19:44 | NUR ---
AWAKE. VOICED "MIGRAINE". RECEIVED MED. AFFECT ATTENTIVE. CALL LIGHT IN REACH. IVF INFUSING.
--- NOTE | 2022-12-14 03:56 | NUR ---
ELECTRIC SHOVEL OPERATOR SUMMARY SLIGHT FEVER, RECEIVED TYLENOL - SEE MAR FOR DETAILS, OTHERWISE VSS. HAS BEEN C/O "MIGRAINES", ANALGESIS ADMINISTERED, EFFECTIVE. IVF INFUSING AND TOLERATING DIET WELL. VERBAL RESPONSE APPROPRIATE TO QUESTIONS ASKED. CURRENLTY RESTING QUIETLY. WILL CONTINUE TO MONITOR
[2022-12-14 05:03] LABS: BASOPHILS ABSOLUTE AUTO 0.13 K/mm3 (0.00-0.23); BASOPHILS PERCENT AUTO 1 % (0-2); EOSINOPHILS ABSOLUTE AUTO 0.22 K/mm3 (0.00-0.68); EOSINOPHILS PERCENT AUTO 1 % (0-6); Hematocrit 21.9 % (33.0-51.0); Hemoglobin 6.9 g/dL (11.5-16.0); IMMATURE GRAN ABSOLUTE AUTO 0.27 K/mm3 (0.00-0.10); IMMATURE GRAN PERCENT AUTO 2 % (0-1); LYMPHOCYTES ABSOLUTE AUTO 1.51 K/mm3 (0.84-5.20); LYMPHOCYTES PERCENT AUTO 8 % (21-46); MONOCYTES ABSOLUTE AUTO 1.49 K/mm3 (0.16-1.47); MONOCYTES PERCENT AUTO 8 % (4-13); Mean Corpuscular HGB 28.6 pg (26.0-34.0); Mean Corpuscular HGB Conc 31.5 g/dL (31.5-36.5); Mean Corpuscular Volume 91 fL (80-100); Mean Platelet Volume 9.6 fL (9.1-12.4); NEUTROPHILS ABSOLUTE AUTO 14.42 K/mm3 (1.96-9.15); NEUTROPHILS PERCENT AUTO 80 % (41-73); Platelet Count 484 K/mm3 (150-400); RDW Coefficient Variation 16.4 % (11.7-14.2); RDW Standard Deviation 55.6 fL (35.1-46.3); Red Blood Cell Count 2.41 M/mm3 (3.80-5.20); White Blood Cell Count 18.04 K/mm3 (4.00-11.30)
[2022-12-14 05:43] LABS: Albumin, Blood 1.3 g/dL (3.4-5.0); Albumin/Globulin Ratio 0.3 (0.8-1.8); Bilirubin, Total 0.2 mg/dL (0.1-1.0); Bun/Creatinine Ratio 16.9 (12.0-20.0); Creatinine, Blood 1.24 mg/dL (0.40-1.00); Globulin, Blood 4.6 g/dL (2.2-4.0); Potassium, Blood 3.9 mmol/L (3.5-5.5); Total Protein, Blood 5.9 g/dL (6.4-8.2)
--- NOTE | 2022-12-14 06:07 | NUR ---
HGB 6.9. MD NOTIFIED ND ORDERED 1 UNIT PRBC.
[2022-12-14 13:53] LABS: Hematocrit 25.1 % (33.0-51.0); Hemoglobin 7.8 g/dL (11.5-16.0)
--- NOTE | 2022-12-14 19:25 | NUR ---
SUMMARY- PT S/O X4, USES CALL LIGHT APPROPRIATELY- INDEPENDANT TO BEDSIDE COMMODE. HAD 1 UNIT PRBC, BROUGHT H/H UP NICELY. WORKED WITH PT/OT, AMBULATED TO BATHROOM SBA WITH WALKER. TOLERATED ACTIVITY WELL. TOLERATING FOOD AND FLUID. TELE ST 100'S. LUNGS CLEAR, ROOM AIR. DID NOT COMPLAIN OF HEADACHE TODAY. REPORTED ALL TO ALONDRA SMYTH.
[2022-12-15 05:25] LABS: BASOPHILS ABSOLUTE AUTO 0.11 K/mm3 (0.00-0.23); BASOPHILS PERCENT AUTO 1 % (0-2); EOSINOPHILS ABSOLUTE AUTO 0.19 K/mm3 (0.00-0.68); EOSINOPHILS PERCENT AUTO 1 % (0-6); Hematocrit 24.1 % (33.0-51.0); Hemoglobin 7.6 g/dL (11.5-16.0); IMMATURE GRAN ABSOLUTE AUTO 0.16 K/mm3 (0.00-0.10); IMMATURE GRAN PERCENT AUTO 1 % (0-1); LYMPHOCYTES ABSOLUTE AUTO 1.17 K/mm3 (0.84-5.20); LYMPHOCYTES PERCENT AUTO 7 % (21-46); MONOCYTES ABSOLUTE AUTO 1.64 K/mm3 (0.16-1.47); MONOCYTES PERCENT AUTO 10 % (4-13); Mean Corpuscular HGB 28.4 pg (26.0-34.0); Mean Corpuscular HGB Conc 31.5 g/dL (31.5-36.5); Mean Corpuscular Volume 90 fL (80-100); Mean Platelet Volume 9.5 fL (9.1-12.4); NEUTROPHILS ABSOLUTE AUTO 13.47 K/mm3 (1.96-9.15); NEUTROPHILS PERCENT AUTO 80 % (41-73); Platelet Count 525 K/mm3 (150-400); RDW Coefficient Variation 16.5 % (11.7-14.2); RDW Standard Deviation 54.6 fL (35.1-46.3); Red Blood Cell Count 2.68 M/mm3 (3.80-5.20); White Blood Cell Count 16.74 K/mm3 (4.00-11.30)
[2022-12-15 06:01] LABS: Albumin, Blood 1.3 g/dL (3.4-5.0); Albumin/Globulin Ratio 0.3 (0.8-1.8); Bilirubin, Total 0.3 mg/dL (0.1-1.0); Creatinine, Blood 1.27 mg/dL (0.40-1.00); Globulin, Blood 4.6 g/dL (2.2-4.0); Potassium, Blood 3.6 mmol/L (3.5-5.5); Total Protein, Blood 5.9 g/dL (6.4-8.2)
--- NOTE | 2022-12-15 07:15 | NUR ---
MIGRATION SPECIALIST SUMMARY: A&Ox4. PLEASANT AND COOPERATIVE WITH CARE. CALLS APPROPRIATELY AND IS ABLE TO COMMUNICATE NEEDS EFFECTIVELY. ORIENTED TO OWN ABILITIES; EXHIBITS MODERATE JUDGMENT AND LACKS INSIGHT. MEDICATED x2 APAP T/O SHIFT; LOW-GRADE FEVER @HS, BUT MANAGED TO KEEP UNDER 100 T/O NIGHT. ALSO C/O "HIDING MIGRAINES"; REQUESTING PRN TOPAMAX BID ROUTINELY. IV REPLACED LAST NIGHT; WOULD LIKE POWERGLIDE IF PT IS ANTICIPATED TO BE HERE MUCH LONGER D/T POOR IV ACCESS AND MULTIPLE DRAWS AND IV ABx. CALL FROM [facility] THIS AM IN NUCLEAR RADIOLOGY: THE MEDICATION NEEDED FOR PT'S WBC STUDY IS UNAVAILABLE AND WILL NOT BE AVAILABLE UNTIL FEBRUARY, SO [facility] IS CANCELING WBC STUDY. OTHER LABS DRAWN THIS AM; NO CRITICAL RESULTS RECEIVED AT THIS TIME. REPORT TO ONCOMING RN.
--- NOTE | 2022-12-15 18:04 | NUR ---
SHIFT SUMMARY- PT ALERT AND ORIENTED. PT IS VERY CONVERSATIONAL. ROUNDED ON THE PT THIS MORNING, SHE HAS BEEN HAVING LOW FEVERS THAT ARE BEING TREATED WITH TYLENOL. MD REQUESTED THAT THIS RN TRY TO HOLD OFF ON THE TYLENOL, TO SEE IF THE FEVER ACTUALLY GOES OVER 100. CALLED MD PRIOR TO GIVING TYLENOL FOR PT 07/13 HEADACHE. RECIEVED OK TO GIVE THE TYLENOL NOW. MEDICATED THE PT FOR THE HEADACHE TEMP 100.6 AT THAT TIME. PT IN BED CALL LIGHT IN REACH, SHE DID GET OOB FOR BREAKFAST. THE PT CAN REPOSITION HERSELF IN THE BED, BUT SHE WILL OFTEN CALL FOR STAFF TO DO IT, STAFF ENCOURAGE HER TO DO WHAT SHE CAN FOR HERSELF. PT STILL NEEDS SBA TO TRANSFER OR AMBULATE. WILL CTM AND PASS ON TO NIGHT RN IN BEDSIDE REPORT.
--- NOTE | 2022-12-16 04:26 | NUR ---
SHIFT SUMMARY PATIENT HAD NO ACUTE CHANGES. AXOX 4 AND SBA W/FWW TO BR. REPORTED MIGRAINE X ONE AND TYLENOL 650 MG GIVEN PER EMAR. COMMUNICATES NEEDS EFFECTIVELY. PIV REMAINS INTACT. LOW GRADE TEMP 100.0. DENIES CHEST PAIN, SOB, AND N/V. VSS. COOPERATIVE WITH CARE. CALL LIGHT IN REACH. BED IN LOWEST POSITION. WILL CONTINUE TO MONITOR UNTIL DAY SHIFT NURSE ASSUMES CARE.
[2022-12-16 05:59] LABS: BASOPHILS ABSOLUTE AUTO 0.13 K/mm3 (0.00-0.23); BASOPHILS PERCENT AUTO 1 % (0-2); EOSINOPHILS ABSOLUTE AUTO 0.16 K/mm3 (0.00-0.68); EOSINOPHILS PERCENT AUTO 1 % (0-6); Hematocrit 24.8 % (33.0-51.0); Hemoglobin 7.7 g/dL (11.5-16.0); IMMATURE GRAN ABSOLUTE AUTO 0.15 K/mm3 (0.00-0.10); IMMATURE GRAN PERCENT AUTO 1 % (0-1); LYMPHOCYTES ABSOLUTE AUTO 1.41 K/mm3 (0.84-5.20); LYMPHOCYTES PERCENT AUTO 9 % (21-46); MONOCYTES ABSOLUTE AUTO 1.35 K/mm3 (0.16-1.47); MONOCYTES PERCENT AUTO 9 % (4-13); Mean Corpuscular HGB 28.2 pg (26.0-34.0); Mean Corpuscular Volume 91 fL (80-100); Mean Platelet Volume 9.3 fL (9.1-12.4); NEUTROPHILS PERCENT AUTO 79 % (41-73); Platelet Count 603 K/mm3 (150-400); RDW Coefficient Variation 16.6 % (11.7-14.2); RDW Standard Deviation 55.4 fL (35.1-46.3); Red Blood Cell Count 2.73 M/mm3 (3.80-5.20)
[2022-12-16 06:24] LABS: Albumin, Blood 1.6 g/dL (3.4-5.0); Albumin/Globulin Ratio 0.3 (0.8-1.8); Bilirubin, Total 0.2 mg/dL (0.1-1.0); Bun/Creatinine Ratio 14.3 (12.0-20.0); Calcium, Blood 8.4 mg/dL (8.5-10.1); Creatinine, Blood 1.33 mg/dL (0.40-1.00); Potassium, Blood 3.8 mmol/L (3.5-5.5); Total Protein, Blood 6.6 g/dL (6.4-8.2)
--- NOTE | 2022-12-16 16:23 | NUR ---
SHIFT SUMMARY- PT HAD C/O NAUSEA THIS SHIFT AND WAS MEDICATED WITH IV ZOFRAN AND TUMS, NO EMESIS WAS PRODUCED. MEDICATED ONCE THIS SHIFT WITH TORADOL FOR HER MIGRAIN, AROUND THE SAME TIME. PT STATED PAIN WAS MUCH BETTER HOWEVER SHE CALLED AT 1615 TO ASK FOR MORE TORADOL, PT STATES HER MIGRAINE IS BACK. PO TYLENOL WAS DC'D, PT IS AWARE MED FOR THIS IS NOT AVAILABLE UNTIL 1914. LIGHTS DIMMED IN THE ROOM. PT ATTEMPTING TO SLEEP A LITTLE, HAS BEEN DOING THAT ALL SHIFT. PT DECLINED TO WORK WITH PHYSIAL THERAPY D/T THE SUDDEN ONSET OF NAUSEA. PT WAS EVALUATED FOR SNF PLACEMENT AND WAS DECLINED TODAY, NEW DC PLAN IS TO DC HOME WITH HOME HEALTH. PT CURRENTLY IN BED, CALL LIGHT IN REACH NO S&S OF DISTRESS NOTED. WILL CTM AND PASS ON TO NIGHT RN IN BEDSIDE REPORT.
--- NOTE | 2022-12-17 03:19 | NUR ---
EXTRUDER TENDER SUMMARY VSS. LATEST HGB 7.7., AWAKE AT INTERVALS WITH C/O "MIGRAINE". MEDICATED WITH ANALGESICS ORDERED - SEE MAR FOR DETAILS. VERBAL RESPONSE MORE APPROPRIATE TO QUESTIONS ASKED THAN NOTED A FEW DAYS AGO. UP TO BEDSIDE COMMODE WITH LITTLE ASSIST NEEDED. USING CALL LIGHT APPROPRIATE. Vendigi ST. OTHERWISE, HAS BEEN RSTING QUIETLY WITH FEW INTERRUPTIONS. CALL LIGHT IN REACH, WILL CONTINUE TO MONITOR
[2022-12-17 05:45] LABS: BASOPHILS ABSOLUTE AUTO 0.15 K/mm3 (0.00-0.23); BASOPHILS PERCENT AUTO 1 % (0-2); EOSINOPHILS ABSOLUTE AUTO 0.25 K/mm3 (0.00-0.68); EOSINOPHILS PERCENT AUTO 2 % (0-6); Hematocrit 24.3 % (33.0-51.0); Hemoglobin 7.5 g/dL (11.5-16.0); IMMATURE GRAN ABSOLUTE AUTO 0.16 K/mm3 (0.00-0.10); IMMATURE GRAN PERCENT AUTO 1 % (0-1); LYMPHOCYTES ABSOLUTE AUTO 1.48 K/mm3 (0.84-5.20); LYMPHOCYTES PERCENT AUTO 10 % (21-46); MONOCYTES ABSOLUTE AUTO 1.69 K/mm3 (0.16-1.47); MONOCYTES PERCENT AUTO 12 % (4-13); Mean Corpuscular HGB 28.4 pg (26.0-34.0); Mean Corpuscular HGB Conc 30.9 g/dL (31.5-36.5); Mean Corpuscular Volume 92 fL (80-100); NEUTROPHILS ABSOLUTE AUTO 10.83 K/mm3 (1.96-9.15); NEUTROPHILS PERCENT AUTO 74 % (41-73); Platelet Count 586 K/mm3 (150-400); RDW Coefficient Variation 16.3 % (11.7-14.2); RDW Standard Deviation 55.4 fL (35.1-46.3); Red Blood Cell Count 2.64 M/mm3 (3.80-5.20); White Blood Cell Count 14.56 K/mm3 (4.00-11.30)
[2022-12-17 06:20] LABS: Bun/Creatinine Ratio 15.3 (12.0-20.0); Calcium, Blood 8.4 mg/dL (8.5-10.1); Creatinine, Blood 1.37 mg/dL (0.40-1.00)
--- NOTE | 2022-12-17 08:10 | NUR ---
pt sitting up on the bed a/ox3, pleasant and cooperative with care, follows commands well, easily distracted, lungs are clear dim t/o, may be fine occ wheeze, but very faint, on r/a, resp even and unlabored, no cough noted at this time, hrr, tele in place running sr per monitor, see strip, no edema noted, ppp+2, cap refill <3sec, vs stable afebrile, piv site is clear and patent, btx4, abd flat soft nontender, voids without diff, reports bm yesterday, skin c/w/d, maew, ambulates with walker, gait noted to be steady, marco, call light in reach.
--- NOTE | 2022-12-17 18:23 | NUR ---
pt has had an uneventful day, talks to the tv, and on the phone freq, did well with therapy, ambulated out in the ordonez, no further changes this shift. call light in reach.
[2022-12-18 05:59] LABS: BASOPHILS ABSOLUTE AUTO 0.14 K/mm3 (0.00-0.23); BASOPHILS PERCENT AUTO 1 % (0-2); EOSINOPHILS ABSOLUTE AUTO 0.27 K/mm3 (0.00-0.68); EOSINOPHILS PERCENT AUTO 2 % (0-6); Hematocrit 25.1 % (33.0-51.0); Hemoglobin 7.5 g/dL (11.5-16.0); IMMATURE GRAN ABSOLUTE AUTO 0.12 K/mm3 (0.00-0.10); IMMATURE GRAN PERCENT AUTO 1 % (0-1); LYMPHOCYTES ABSOLUTE AUTO 1.86 K/mm3 (0.84-5.20); LYMPHOCYTES PERCENT AUTO 15 % (21-46); MONOCYTES ABSOLUTE AUTO 1.28 K/mm3 (0.16-1.47); MONOCYTES PERCENT AUTO 10 % (4-13); Mean Corpuscular HGB 27.9 pg (26.0-34.0); Mean Corpuscular HGB Conc 29.9 g/dL (31.5-36.5); Mean Corpuscular Volume 93 fL (80-100); Mean Platelet Volume 9.2 fL (9.1-12.4); NEUTROPHILS ABSOLUTE AUTO 9.11 K/mm3 (1.96-9.15); NEUTROPHILS PERCENT AUTO 71 % (41-73); Platelet Count 663 K/mm3 (150-400); RDW Coefficient Variation 16.4 % (11.7-14.2); RDW Standard Deviation 55.8 fL (35.1-46.3); Red Blood Cell Count 2.69 M/mm3 (3.80-5.20); White Blood Cell Count 12.78 K/mm3 (4.00-11.30)
--- NOTE | 2022-12-18 06:10 | NUR ---
PERLITA HAD A GOOD NIGHT WITH SLEEP INTERRUPTIONS KEPT TO A MINIMUM. SHE IS GETTING OOB WITH FWW INDEPENDENTLY FROM BED TO BATHROOM. MINIMAL COMPLAINT OF HEADACHE PAIN RESOLVED WITH TRAMADOL. PATIENT WAS HOWEVER SURPRISED THAT INTERVAL BETWEEN DOSES HAD BEEN EXTENDED TO 12 HOURS, BUT SHE WAS OK WITH IT AND JUST WENT BACK TO BED AND FELL ASLEEP. UPPER AIRWAYS WITH SCATTERED CRACKLES DO CLEAR WITH GOOD (NONPRODUCTIVE)COUGH
[2022-12-18 06:18] LABS: Bun/Creatinine Ratio 16.2 (12.0-20.0); Calcium, Blood 8.5 mg/dL (8.5-10.1); Creatinine, Blood 1.48 mg/dL (0.40-1.00); Potassium, Blood 4.1 mmol/L (3.5-5.5)
--- NOTE | 2022-12-18 18:34 | NUR ---
SHIFT SUMMARY PT AXO, PLEASANT AND COOPERATIVE WITH CARE THOUGH ANXIOUS AT TIMES. VSS THOUGH PT BP WITH AFTERNOON VITALS WAS LOW, THIS NURSE WAS NOT NOTIFIED. THIS NURSE WILL PASS THIS ON TO FACTORY PROCESS WORKERS TO ASSESS PATIENT FURTHER. PT COMPLAINED OF ABDOMINAL PAIN AT START OF SHIFT BUT THEN FELL ASLEEP AND DID NOT MENTION THIS FURTHER. NO ACUTE CHANGES THIS SHIFT. IV PATENT AND SALINE LOCKED. PT WAS ON THE PHONE WITH HER DAUGHTER THIS AFTERNOON AND ASKED THIS NURSE TO SPEAK WITH HER DAUGHTER ABOUT DISCHARGE. PT'S DAUGHTER STATES THAT SHE WANTS PATIENT TO BE DISCHARGED INTO HER CARE. EDUCATIONAL PSYCHOLOGY TEACHER AWARE. BOTH PATIENT AND DAUGHTER STATE THAT THEY COULD ARRANGE [facility] [employer] [facility] FOR TOMORROW MORNING AT 10 AM. BED IN LOW POSITION, CALL LIGHT WITHIN REACH.
[2022-12-19 06:20] LABS: BASOPHILS ABSOLUTE AUTO 0.11 K/mm3 (0.00-0.23); BASOPHILS PERCENT AUTO 1 % (0-2); EOSINOPHILS ABSOLUTE AUTO 0.21 K/mm3 (0.00-0.68); EOSINOPHILS PERCENT AUTO 2 % (0-6); Hematocrit 24.5 % (33.0-51.0); Hemoglobin 7.2 g/dL (11.5-16.0); IMMATURE GRAN PERCENT AUTO 1 % (0-1); LYMPHOCYTES ABSOLUTE AUTO 1.52 K/mm3 (0.84-5.20); LYMPHOCYTES PERCENT AUTO 18 % (21-46); MONOCYTES ABSOLUTE AUTO 0.98 K/mm3 (0.16-1.47); MONOCYTES PERCENT AUTO 11 % (4-13); Mean Corpuscular HGB 27.3 pg (26.0-34.0); Mean Corpuscular HGB Conc 29.4 g/dL (31.5-36.5); Mean Corpuscular Volume 93 fL (80-100); Mean Platelet Volume 9.2 fL (9.1-12.4); NEUTROPHILS ABSOLUTE AUTO 5.75 K/mm3 (1.96-9.15); NEUTROPHILS PERCENT AUTO 66 % (41-73); Platelet Count 641 K/mm3 (150-400); RDW Coefficient Variation 15.9 % (11.7-14.2); RDW Standard Deviation 54.9 fL (35.1-46.3); RETICULOCYTE ABSOLUTE 0.0348 M/mm3 (0.0200-0.1100); RETICULOCYTE COUNT PERCENT 1.32 % (0.50-2.50); Red Blood Cell Count 2.64 M/mm3 (3.80-5.20); White Blood Cell Count 8.67 K/mm3 (4.00-11.30)
--- NOTE | 2022-12-19 06:42 | NUR ---
PATIENT SLEPT WELL MOST OF THE NIGHT. WHEN SHE WOULD AWAKEN, SHE WOULD EXPRESS HER EXCITEMENT ABOUT GOING HOME WITH HER DAUGHTER IN THE MORNING. SHE DID COMPLAIN ABOUT A MIGRAINE THAT SHE HAD HAD OFF AND ON SINCE YESTERDAY MORNING. SHE WAS ASKING FOR HER PROPRANOLOL IF IT WAS A PRN FOR HER HEADACHES. WHEN IT WAS EX PLAINED TO HER, SHE WOULD ACCEPT THE TYLENOL AND ULTRAM AND GO BACK TO SLEEP. NO NEW COMPLAINTS OR CONCERNS
[2022-12-19 07:05] LABS: Bun/Creatinine Ratio 16.4 (12.0-20.0); Calcium, Blood 8.4 mg/dL (8.5-10.1); Creatinine, Blood 1.52 mg/dL (0.40-1.00); Potassium, Blood 3.6 mmol/L (3.5-5.5)
[2022-12-19] MEDS ORDERED: ACET325 PO (09:52)
[2022-12-19] MEDS ORDERED: PANT20 PO (09:52)
[2022-12-19] MEDS ORDERED: FERSU300 PO (11:02)
--- NOTE | 2022-12-19 15:03 | NUR ---
PT AWAKE DURING SHIFT REPORT THIS AM. A&O, PLEASANT AND CO-OP. PT WANTING TO GO HOME AND WAITING FOR DAUGHTER TO ARRIVE TO PICK HER UP. DR GUPTA AND DR PERERA BOTH IN TO SEE PT AND DISCUSS PLAN OF CARE. PT TO D/C TO DAUGHTER'S HOME WITH H/H. [employer] TO ASSIST WITH EQUIPMENT AND H/H CHOICE. PT'S DAUGHTER SOON HERE AND PT WANTING TO LEAVE IMMEDIATELY. ATTEMPTED TO CONTACT [employer]; UNAVAILABLE AT THAT MOMENT. PT INSISTING THAT SHE ALREADY HAD A CANE AND SHOWER CHAIR ORDERED BY HER DR, WAITING FOR HER TO P/U. [employer]EL[employer] ATTEMPTING TO NOTIFY DAUGHTER FOR H/H CHOICE. MEDS FAXED TO [facility]. D/C INSTRUCTIONS REVIEWED WITH PT AND DAUGHTER. IV SITE D/C'D WNL'S. PT ASSISTED OUT TO DAUGHTERS CAR VIA W/C. PT TAKING BELONGINGS WITH HER.
== END 2022-12-19 14:24 | disposition home health service (06) | DRG 871 ==
LOC: ER 19:16 → MEDS 22:32 → ICUW 22:32 → MEDS 12-07 17:47
PROVIDERS: Emergency Medicine; Family Medicine; Internal Medicine Critical Care Medicine; Student in an Organized Health Care Education/Training Program; ADMIT Internal Medicine
PROC: 3E033XZ Introduction of Vasopressor into Peripheral Vein, Percutaneous Approach (ICD-10-PCS; principal; 2022-12-04)
PROC: 3E03329 Introduction of Other Anti-infective into Peripheral Vein, Percutaneous Approach (ICD-10-PCS; 2022-12-04)
PROC: 0T9B70Z Drainage of Bladder with Drainage Device, Via Natural or Artificial Opening (ICD-10-PCS; 2022-12-04)
PROC: 02HV33Z Insertion of Infusion Device into Superior Vena Cava, Percutaneous Approach (ICD-10-PCS; 2022-12-05)
PROC: 0DH67UZ Insertion of Feeding Device into Stomach, Via Natural or Artificial Opening (ICD-10-PCS; 2022-12-05)
PROC: 3E0G76Z Introduction of Nutritional Substance into Upper GI, Via Natural or Artificial Opening (ICD-10-PCS; 2022-12-05)
PROC: 5A1945Z Respiratory Ventilation, 24-96 Consecutive Hours (ICD-10-PCS; 2022-12-05)
PROC: 0BH17EZ Insertion of Endotracheal Airway into Trachea, Via Natural or Artificial Opening (ICD-10-PCS; 2022-12-05)
PROC: 4A033R1 Measurement of Arterial Saturation, Peripheral, Percutaneous Approach (ICD-10-PCS; 2022-12-05)
PROC: 30233N1 Transfusion of Nonautologous Red Blood Cells into Peripheral Vein, Percutaneous Approach (ICD-10-PCS; 2022-12-11)
DX: A41.51 Sepsis due to Escherichia coli [E. coli] (principal); G92.8 Other toxic encephalopathy; J96.01 Acute respiratory failure with hypoxia; K66.1 Hemoperitoneum; R65.21 Severe sepsis with septic shock; J18.9 Pneumonia, unspecified organism; J69.0 Pneumonitis due to inhalation of food and vomit; N17.9 Acute kidney failure, unspecified; N39.0 Urinary tract infection, site not specified; Q61.3 Polycystic kidney, unspecified; E46 Unspecified protein-calorie malnutrition; Z68.1 Body mass index [BMI] 19.9 or less, adult; D63.1 Anemia in chronic kidney disease; N76.0 Acute vaginitis; E87.6 Hypokalemia; R56.9 Unspecified convulsions; F15.10 Other stimulant abuse, uncomplicated; I12.9 Hypertensive chronic kidney disease with stage 1 through stage 4 chronic kidney disease, or unspecified chronic kidney disease; N18.31 Chronic kidney disease, stage 3a; D50.9 Iron deficiency anemia, unspecified; D52.9 Folate deficiency anemia, unspecified; E86.0 Dehydration; E86.9 Volume depletion, unspecified; G43.709 Chronic migraine without aura, not intractable, without status migrainosus; F31.9 Bipolar disorder, unspecified; E88.09 Other disorders of plasma-protein metabolism, not elsewhere classified; F17.210 Nicotine dependence, cigarettes, uncomplicated; M79.7 Fibromyalgia; F12.10 Cannabis abuse, uncomplicated; F90.9 Attention-deficit hyperactivity disorder, unspecified type; B96.89 Other specified bacterial agents as the cause of diseases classified elsewhere; Z98.51 Tubal ligation status; Z95.828 Presence of other vascular implants and grafts; Z88.8 Allergy status to other drugs, medicaments and biological substances; Z88.5 Allergy status to narcotic agent; Z79.899 Other long term (current) drug therapy; Z98.890 Other specified postprocedural states; Z86.718 Personal history of other venous thrombosis and embolism; Z79.891 Long term (current) use of opiate analgesic; Z79.01 Long term (current) use of anticoagulants; Z79.51 Long term (current) use of inhaled steroids; Z88.2 Allergy status to sulfonamides; Z88.0 Allergy status to penicillin; Z79.52 Long term (current) use of systemic steroids
CPT/HCPCS: 31500; 36415; 36430; 36556; 36600; 51702; 70450; 71045; 74176; 74177; 80048; 80053; 80069; 80201; 81001; 82140; 82607; 82728; 82746; 82803; 82947; 83540; 83550; 83605; 83735; 83880; 84100; 84145; 84439; 84443; 84481; 85014; 85018; 85025; 85027; 85045; 85651; 86140; 86850; 86900; 86901; 86923; 87040; 87077; 87086; 87186; 93005; 93010; 93306; 93970; 94002; 94003; 94640; 94664; 94760; 96365; 96375; 97110; 97110-CQ; 97116; 97116-CQ; 97162; 97166; 97530; 97535; 99285-25; A9270; C1751; C9113; J0461; J0610; J0692; J0696; J1650; J1953; J1956; J2310; J2405; J2704; J3475; J3480; J7030; J7050; J7060; J7120; P9016; P9047; P9612; Q9967

== ENCOUNTER 2022-12-22 17:34 | Inpatient (IN) | payer MEDICARE, OTHER ==
[~2022-12-22] VITALS: Ht 170.2 cm; Wt 59.0 kg
[~2022-12-22 17:34] MED LIST changes: +ACET325 PO; +ALBU90OI INH; +AMETHIA 0.15-01 EAC1 PO; +CELEBREX200 MG PO; +FERSU300 PO; +FLUTICASONE PRO16 GM; +PANT20 PO; +PROPRANOLOL HCL60 MG PO; -Ventolin/Prove6.7 GM INH
[2022-12-22 17:54] LABS: BASOPHILS ABSOLUTE AUTO 0.14 K/mm3 (0.00-0.23); BASOPHILS PERCENT AUTO 1 % (0-2); EOSINOPHILS ABSOLUTE AUTO 0.29 K/mm3 (0.00-0.68); EOSINOPHILS PERCENT AUTO 2 % (0-6); Hematocrit 29.6 % (33.0-51.0); IMMATURE GRAN PERCENT AUTO 1 % (0-1); LYMPHOCYTES ABSOLUTE AUTO 1.26 K/mm3 (0.84-5.20); LYMPHOCYTES PERCENT AUTO 10 % (21-46); MONOCYTES PERCENT AUTO 10 % (4-13); Mean Corpuscular HGB 27.7 pg (26.0-34.0); Mean Corpuscular HGB Conc 30.4 g/dL (31.5-36.5); Mean Corpuscular Volume 91 fL (80-100); Mean Platelet Volume 8.7 fL (9.1-12.4); NEUTROPHILS ABSOLUTE AUTO 9.13 K/mm3 (1.96-9.15); NEUTROPHILS PERCENT AUTO 75 % (41-73); Platelet Count 788 K/mm3 (150-400); RDW Coefficient Variation 16.1 % (11.7-14.2); RDW Standard Deviation 53.6 fL (35.1-46.3); Red Blood Cell Count 3.25 M/mm3 (3.80-5.20); White Blood Cell Count 12.12 K/mm3 (4.00-11.30)
[2022-12-22 17:55] LABS: Calcium, Ionized (POC) 1.25 mmol/L (1.10-1.46); Chloride (POC) 117 mmol/L (98-108); Creatinine (POC) 1.4 mg/dL (0.6-1.0); Glucose (ISTAT POC) 97 mg/dL (70-99); Hemoglobin (POC) 9.2 g/dL (12.0-16.0); Potassium (POC) 4.5 mmol/L (3.5-5.5); Sodium (POC) 147 mmol/L (135-148); Total CO2 (POC) 21 mmol/L (21-32)
[2022-12-22 18:18] LABS: International Normalized Ratio 1.06; Prothrombin Time Results 11.1 Sec (9.7-11.5)
[2022-12-22 18:22] LABS: Albumin, Blood 2.1 g/dL (3.4-5.0); Albumin/Globulin Ratio 0.4 (0.8-1.8); Bilirubin, Total 0.2 mg/dL (0.1-1.0); Bun/Creatinine Ratio 19.6 (12.0-20.0); Calcium, Blood 9.5 mg/dL (8.5-10.1); Creatinine, Blood 1.38 mg/dL (0.40-1.00); Potassium, Blood 4.4 mmol/L (3.5-5.5); Total Protein, Blood 8.1 g/dL (6.4-8.2)
[2022-12-22 18:40] LABS: Source, Urine Straight Cath
[2022-12-22 18:46] LABS: Bilirubin, Urine Neg (Neg); Blood, Urine 4+ (Neg); Glucose Qualitative, Urine Neg (Neg); Ketones, Urine Neg (Neg); Leukocyte Esterase, Urine 3+ (Neg); Nitrite, Urine Neg (Neg); Protein, Urine 1+ (Neg); Urobilinogen, Urine NORM (Normal)
[2022-12-22 18:58] LABS: Appearance, Urine Hazy (Clear); Color, Urine Pale Yellow (P-Yellow)
[2022-12-22 18:59] LABS: Red Blood Cells, Urine 0-2 /hpf (0-2); Squamous Epithelial Cells Rare /hpf (Few); White Blood Cells, Urine 25-50 /hpf (0-5)
[2022-12-22 19:00] LABS: Amorphous Light (0-Heavy); Bacteria Mod /hpf
[2022-12-22 19:07] LABS: U Amphetamine Screen Not Detected; U Barbituate Screen Not Detected; U Benzodiazapine Screen Not Detected; U Buprenorphine Screen Not Detected; U Cannabinoids Screen DETECTED; U Cocaine Screen Not Detected; U Methadone Screen Not Detected; U Methamphetamine Screen Not Detected; U Opiates Screen Not Detected; U Oxycodone Screen Not Detected; U Phencyclidine Screen Not Detected; U Propoxyphene Screen Not Detected
[2022-12-22 19:11] LABS: Base Excess Venous -4.4 mmol/L; Bicarbonate Venous 21.1 mmol/L (24.0-30.0); PCO2 Venous 35.9 mmHg (38-42); pH Blood Venous 7.37 (7.34-7.37)
--- NOTE | 2022-12-22 23:07 | NUR ---
PT ARRIVED TO UNIT VIA STRETCHER. PT NOT RESPONDING OR FOLLOWING COMMANDS. BED ALARM ON.
--- NOTE | 2022-12-23 01:13 | NUR ---
CALLED INTO ROOM PT SEEMED TO BE HAVING SZ ACTIVITY. CALLED AND GOT ORDER FOR ATIVAN.
[2022-12-23 02:07] LABS: BASOPHILS ABSOLUTE AUTO 0.09 K/mm3 (0.00-0.23); BASOPHILS PERCENT AUTO 1 % (0-2); EOSINOPHILS ABSOLUTE AUTO 0.11 K/mm3 (0.00-0.68); EOSINOPHILS PERCENT AUTO 1 % (0-6); Hematocrit 31.8 % (33.0-51.0); Hemoglobin 9.2 g/dL (11.5-16.0); IMMATURE GRAN ABSOLUTE AUTO 0.06 K/mm3 (0.00-0.10); IMMATURE GRAN PERCENT AUTO 1 % (0-1); LYMPHOCYTES ABSOLUTE AUTO 1.35 K/mm3 (0.84-5.20); LYMPHOCYTES PERCENT AUTO 17 % (21-46); MONOCYTES ABSOLUTE AUTO 0.78 K/mm3 (0.16-1.47); MONOCYTES PERCENT AUTO 10 % (4-13); Mean Corpuscular HGB 27.1 pg (26.0-34.0); Mean Corpuscular HGB Conc 28.9 g/dL (31.5-36.5); Mean Corpuscular Volume 94 fL (80-100); Mean Platelet Volume 8.9 fL (9.1-12.4); NEUTROPHILS ABSOLUTE AUTO 5.62 K/mm3 (1.96-9.15); NEUTROPHILS PERCENT AUTO 70 % (41-73); Platelet Count 594 K/mm3 (150-400); RDW Coefficient Variation 16.2 % (11.7-14.2); RDW Standard Deviation 55.4 fL (35.1-46.3); White Blood Cell Count 8.01 K/mm3 (4.00-11.30)
[2022-12-23 02:26] LABS: Albumin, Blood 1.9 g/dL (3.4-5.0); Anion Gap 4 mmol/L (6-16); Blood Urea Nitrogen 27 mg/dL (8-24); CO2, Blood 23 mmol/L (21-32); Calcium, Blood 8.6 mg/dL (8.5-10.1); Chloride, Blood 119 mmol/L (98-108); Creatinine, Blood 1.23 mg/dL (0.40-1.00); Glomerular Filtration Rate 54 (60-); Glucose, Blood 93 mg/dL (70-99); Magnesium, Blood 2.7 mg/dL (1.6-2.4); Phosphorus, Blood 5.6 mg/dL (2.5-4.9); Potassium, Blood 3.8 mmol/L (3.5-5.5); Prolactin 33.1 ng/mL; Sodium, Blood 146 mmol/L (136-145)
--- NOTE | 2022-12-23 05:57 | NUR ---
PT WITH TWO EPISODES OF SZ ACTIVITY.ATIVAN GIVEN WITH OPTIMAL RESULTS. PT INCONT. FREQUENT CHECKS FOR SAFETY, IS ON VIDEO MONITOR FOR SAFETY. MRI CHECKLIST TO BE DONE PT IN UNABLE TO RESPOND. EEG ORDERED.
--- NOTE | 2022-12-23 16:28 | NUR ---
SPN SHIFT SUMMARY Pt HAS BEEN RESTLESS BUT NO SEZIURES THIS SHIFT. Pt WAS UNABLE TO REMAIN STILL FOR MRI. ATIVAN HAS BEEN ORDERED FOR THE AM PRIOR TO MRI TO GET CLEAR PICTURE. Pt WAS ABLE TO TAKE ORAL MEDS LATE IN THE SHIFT TODAY. Pt WAS MORE ALERT WHEN DAUGHTER CAME. Pt HAS BEEN A&O TO SELF ONLY. SPEECH IS UNCLEAR. Pt HAD 2 INCONT EPISODES TODAY. Pt ATE FOR DAUGHTER 2 ENSURE AND JELLO. SEIZURE PADS WERE PUT INPLACE. CALL LIGHT IS IN REACH. WILL CONTINUE TO MONITOR AND PROVIDE CARE.
--- NOTE | 2022-12-23 18:25 | NUR ---
I have reviewed director industrial nursing documentation & agree with assessment.
--- NOTE | 2022-12-24 05:28 | NUR ---
PT UNABLE TO VOICE WHY SHE IS IN THE HOSPIAL, "I VE BEEN HERE FOR WEEKS". PT IS CONFUSED BUT MORE AWARE THAN PREVIOUS SHIFT, NO SZ ACTIVITY NOTED. IV FLUIDS STOPPED, DIET REORDERED AFTER LAB DRAW.
[2022-12-24 05:34] LABS: BASOPHILS ABSOLUTE AUTO 0.15 K/mm3 (0.00-0.23); BASOPHILS PERCENT AUTO 2 % (0-2); EOSINOPHILS ABSOLUTE AUTO 0.36 K/mm3 (0.00-0.68); EOSINOPHILS PERCENT AUTO 4 % (0-6); Hemoglobin 7.7 g/dL (11.5-16.0); IMMATURE GRAN PERCENT AUTO 1 % (0-1); LYMPHOCYTES PERCENT AUTO 19 % (21-46); MONOCYTES ABSOLUTE AUTO 1.29 K/mm3 (0.16-1.47); MONOCYTES PERCENT AUTO 13 % (4-13); Mean Corpuscular HGB 27.5 pg (26.0-34.0); Mean Corpuscular HGB Conc 29.6 g/dL (31.5-36.5); Mean Corpuscular Volume 93 fL (80-100); Mean Platelet Volume 8.6 fL (9.1-12.4); NEUTROPHILS ABSOLUTE AUTO 6.14 K/mm3 (1.96-9.15); NEUTROPHILS PERCENT AUTO 62 % (41-73); Platelet Count 683 K/mm3 (150-400); RDW Coefficient Variation 16.1 % (11.7-14.2); RDW Standard Deviation 55.1 fL (35.1-46.3); White Blood Cell Count 9.94 K/mm3 (4.00-11.30)
[2022-12-24 06:31] LABS: Albumin/Globulin Ratio 0.4 (0.8-1.8); Bilirubin, Total 0.3 mg/dL (0.1-1.0); Calcium, Blood 8.3 mg/dL (8.5-10.1); Creatinine, Blood 1.19 mg/dL (0.40-1.00); Globulin, Blood 5.1 g/dL (2.2-4.0); Magnesium, Blood 2.2 mg/dL (1.6-2.4); Potassium, Blood 3.1 mmol/L (3.5-5.5); Prolactin 29.1 ng/mL; Total Protein, Blood 7.1 g/dL (6.4-8.2)
[2022-12-24 16:06] LABS: BASOPHILS ABSOLUTE AUTO 0.11 K/mm3 (0.00-0.23); BASOPHILS PERCENT AUTO 1 % (0-2); EOSINOPHILS ABSOLUTE AUTO 0.36 K/mm3 (0.00-0.68); EOSINOPHILS PERCENT AUTO 4 % (0-6); Hematocrit 27.1 % (33.0-51.0); Hemoglobin 8.1 g/dL (11.5-16.0); IMMATURE GRAN ABSOLUTE AUTO 0.08 K/mm3 (0.00-0.10); IMMATURE GRAN PERCENT AUTO 1 % (0-1); LYMPHOCYTES ABSOLUTE AUTO 1.62 K/mm3 (0.84-5.20); LYMPHOCYTES PERCENT AUTO 19 % (21-46); MONOCYTES ABSOLUTE AUTO 1.11 K/mm3 (0.16-1.47); MONOCYTES PERCENT AUTO 13 % (4-13); Mean Corpuscular HGB 27.9 pg (26.0-34.0); Mean Corpuscular HGB Conc 29.9 g/dL (31.5-36.5); Mean Corpuscular Volume 93 fL (80-100); Mean Platelet Volume 9.6 fL (9.1-12.4); NEUTROPHILS ABSOLUTE AUTO 5.18 K/mm3 (1.96-9.15); NEUTROPHILS PERCENT AUTO 61 % (41-73); Platelet Count 549 K/mm3 (150-400); RDW Coefficient Variation 16.5 % (11.7-14.2); RDW Standard Deviation 55.6 fL (35.1-46.3); White Blood Cell Count 8.46 K/mm3 (4.00-11.30)
--- NOTE | 2022-12-24 18:22 | NUR ---
SHIFT SUMMARY PT RESTING QUIETLY AT START OF SHIFT. WOKE EASILY FOR CARE. A&O, VERY TALKATIVE. CL DIET UNTIL THIS EVENING. PT WANTING DIET ADVANCED. MRI ORDERED THIS AM; PT TAKEN DOWN AT 1400. DR LEACH IN TO SEE PT AND DISCUSS PLAN OF CARE PRIOR TO MRI. DAUGHTER HERE THIS AFTERNOON. DR LEACH RETURNED TO SPEAK WITH DAUGHTER, PER PT REQUEST. PT TO STAY ONE MORE NIGHT TO MAKE SURE MEDICATIONS ARE EFFECTIVE. PT BECOMING ANXIOUS THIS EVENING; VERY IMPATIENT WITH WAITING FOR ANYTHING. IMPATIENT WAITING FOR MRI, THEN ABOUT WAITING FOR RESULTS, AND NOW WANTING TO GO HOME. PT IS VERY FORGETFUL WITH EXTREMELY SHORT MEMORY. MEDICATED FOR C/O HAGEN. SITTING UP EATING DINNER AT THIS TIME. CALL LT IN REACH. DAUGHTER REMAINS AT BS.
[2022-12-25 05:10] LABS: BASOPHILS ABSOLUTE AUTO 0.14 K/mm3 (0.00-0.23); BASOPHILS PERCENT AUTO 1 % (0-2); EOSINOPHILS ABSOLUTE AUTO 0.44 K/mm3 (0.00-0.68); EOSINOPHILS PERCENT AUTO 4 % (0-6); Hematocrit 26.7 % (33.0-51.0); Hemoglobin 7.9 g/dL (11.5-16.0); IMMATURE GRAN ABSOLUTE AUTO 0.11 K/mm3 (0.00-0.10); IMMATURE GRAN PERCENT AUTO 1 % (0-1); LYMPHOCYTES ABSOLUTE AUTO 1.88 K/mm3 (0.84-5.20); LYMPHOCYTES PERCENT AUTO 18 % (21-46); MONOCYTES ABSOLUTE AUTO 1.36 K/mm3 (0.16-1.47); MONOCYTES PERCENT AUTO 13 % (4-13); Mean Corpuscular HGB 27.2 pg (26.0-34.0); Mean Corpuscular HGB Conc 29.6 g/dL (31.5-36.5); Mean Corpuscular Volume 92 fL (80-100); Mean Platelet Volume 8.8 fL (9.1-12.4); NEUTROPHILS ABSOLUTE AUTO 6.68 K/mm3 (1.96-9.15); NEUTROPHILS PERCENT AUTO 63 % (41-73); Platelet Count 647 K/mm3 (150-400); RDW Coefficient Variation 16.2 % (11.7-14.2); RDW Standard Deviation 54.6 fL (35.1-46.3); White Blood Cell Count 10.61 K/mm3 (4.00-11.30)
[2022-12-25 05:26] LABS: Bun/Creatinine Ratio 15.3 (12.0-20.0); Calcium, Blood 8.5 mg/dL (8.5-10.1); Creatinine, Blood 1.18 mg/dL (0.40-1.00); Potassium, Blood 3.9 mmol/L (3.5-5.5)
[2022-12-25] MEDS ORDERED: LEVE500 PO (11:59)
--- NOTE | 2022-12-25 16:58 | NUR ---
PT AWAKE AT START OF SHIFT, WATCHING TV. PT WANTING TO GO HOME IMMEDIATELY. D/C PROCESS EXPLAINED TO PT AGAIN. DR LEACH IN TO SEE PT AND DISCUSS PLAN OF CARE. D/C ORDERS PLACED. MEDS FA[facility]ED TO [id number] PER PT REQUEST. PT STARTED ON KEPPRA DURING ADMISSION AND TO CONTINUE AFTER D/C. D/C MEDS AND INSTRUCTIONS REVIEWED WITH PT IN DETAIL. PT VERBALIZED UNDERSTANDING. PT'S DAUGHTER NOTIFIED DESK THAT SHE WAS HERE TO PICK HER UP. PT ASSISTED DOWN TO DAUGHTERS CAR VIA W/C. IV D/D'D WNL'S PRIOR TO D/C.
== END 2022-12-25 14:19 | disposition home or self-care (01) | DRG 103 ==
LOC: ER 17:34 → MEDS 21:58
PROVIDERS: Emergency Medicine; Student in an Organized Health Care Education/Training Program; ADMIT Internal Medicine
DX: G43.909 Migraine, unspecified, not intractable, without status migrainosus (principal); E87.0 Hyperosmolality and hypernatremia; N39.0 Urinary tract infection, site not specified; G93.49 Other encephalopathy; E83.39 Other disorders of phosphorus metabolism; F17.210 Nicotine dependence, cigarettes, uncomplicated; F15.90 Other stimulant use, unspecified, uncomplicated; R25.8 Other abnormal involuntary movements; F12.90 Cannabis use, unspecified, uncomplicated; D63.1 Anemia in chronic kidney disease; N18.30 Chronic kidney disease, stage 3 unspecified; G89.29 Other chronic pain; Z91.14 Patient's other noncompliance with medication regimen; Z86.718 Personal history of other venous thrombosis and embolism; Z88.0 Allergy status to penicillin; Z88.2 Allergy status to sulfonamides; Z88.6 Allergy status to analgesic agent; Z88.8 Allergy status to other drugs, medicaments and biological substances; Z79.01 Long term (current) use of anticoagulants; Z79.899 Other long term (current) drug therapy
CPT/HCPCS: 36415; 70450; 70496; 70498; 70551; 71045; 80047; 80048; 80053; 80069; 80177; 80201; 81001; 82803; 83605; 83735; 84145; 84146; 84484; 85014; 85025; 85610; 85730; 87040; 87086; 93005; 93010; 94640; 94664; 94760; 96361; 96374-59; 96375-59; 99285-25; A9270; C9113; G0480; J0696; J1953; J2060; J7030; P9612; Q9967

== ENCOUNTER 2022-12-27 23:13 | Inpatient (IN) | payer MEDICARE, OTHER ==
[~2022-12-27] VITALS: Ht 162.6 cm; Wt 59.0 kg
[~2022-12-27 23:13] MED LIST changes: +LEVE500 PO
[2022-12-28 00:21] LABS: BASOPHILS ABSOLUTE AUTO 0.17 K/mm3 (0.00-0.23); BASOPHILS PERCENT AUTO 1 % (0-2); EOSINOPHILS ABSOLUTE AUTO 0.51 K/mm3 (0.00-0.68); EOSINOPHILS PERCENT AUTO 4 % (0-6); Hematocrit 29.5 % (33.0-51.0); IMMATURE GRAN ABSOLUTE AUTO 0.19 K/mm3 (0.00-0.10); IMMATURE GRAN PERCENT AUTO 2 % (0-1); LYMPHOCYTES ABSOLUTE AUTO 2.75 K/mm3 (0.84-5.20); LYMPHOCYTES PERCENT AUTO 22 % (21-46); MONOCYTES ABSOLUTE AUTO 0.91 K/mm3 (0.16-1.47); MONOCYTES PERCENT AUTO 7 % (4-13); Mean Corpuscular HGB 28.3 pg (26.0-34.0); Mean Corpuscular HGB Conc 30.5 g/dL (31.5-36.5); Mean Corpuscular Volume 93 fL (80-100); Mean Platelet Volume 9.2 fL (9.1-12.4); NEUTROPHILS ABSOLUTE AUTO 8.16 K/mm3 (1.96-9.15); NEUTROPHILS PERCENT AUTO 64 % (41-73); Platelet Count 489 K/mm3 (150-400); RDW Coefficient Variation 17.5 % (11.7-14.2); Red Blood Cell Count 3.18 M/mm3 (3.80-5.20); White Blood Cell Count 12.69 K/mm3 (4.00-11.30)
[2022-12-28 00:34] LABS: Alanine Aminotransfer (ALT/SGP 16 U/L (12-78); Albumin, Blood 2.1 g/dL (3.4-5.0); Albumin/Globulin Ratio 0.4 (0.8-1.8); Alk Phos 74 U/L (50-136); Anion Gap 1 mmol/L (6-16); Aspartate Aminotrans (AST/SGOT 17 U/L (12-37); Bilirubin, Total 0.2 mg/dL (0.1-1.0); Blood Urea Nitrogen 27 mg/dL (8-24); Bun/Creatinine Ratio 23.1 (12.0-20.0); CO2, Blood 26 mmol/L (21-32); Calcium, Blood 9.2 mg/dL (8.5-10.1); Chloride, Blood 117 mmol/L (98-108); Creatinine, Blood 1.17 mg/dL (0.40-1.00); Ethanol (Alcohol), Blood, Med <3 mg/dL; Globulin, Blood 5.3 g/dL (2.2-4.0); Glomerular Filtration Rate 58 (60-); Glucose, Blood 92 mg/dL (70-99); Potassium, Blood 4.3 mmol/L (3.5-5.5); Sodium, Blood 144 mmol/L (136-145); Total Protein, Blood 7.4 g/dL (6.4-8.2)
[2022-12-28 00:36] LABS: International Normalized Ratio 1.26
[2022-12-28 01:01] LABS: Magnesium, Blood 2.5 mg/dL (1.6-2.4)
[2022-12-28 03:09] LABS: Source, Urine Clean Catch
[2022-12-28 03:12] LABS: Bilirubin, Urine Neg (Neg); Blood, Urine 3+ (Neg); Glucose Qualitative, Urine Neg (Neg); Ketones, Urine Neg (Neg); Leukocyte Esterase, Urine 2+ (Neg); Nitrite, Urine Neg (Neg); Protein, Urine 2+ (Neg); Urobilinogen, Urine NORM (Normal); pH, Urine 6.5 (5.0-8.0)
[2022-12-28 03:13] LABS: Appearance, Urine Clear (Clear); Color, Urine Pale Yellow (P-Yellow)
[2022-12-28 03:29] LABS: Amorphous Mod (0-Heavy); Bacteria Few /hpf; Red Blood Cells, Urine 0-2 /hpf (0-2); Squamous Epithelial Cells Not Seen /hpf (Few); U Amphetamine Screen Not Detected; U Barbituate Screen Not Detected; U Benzodiazapine Screen Not Detected; U Buprenorphine Screen Not Detected; U Cannabinoids Screen Not Detected; U Cocaine Screen Not Detected; U Methadone Screen Not Detected; U Methamphetamine Screen Not Detected; U Opiates Screen Not Detected; U Oxycodone Screen Not Detected; U Phencyclidine Screen Not Detected; U Propoxyphene Screen Not Detected; White Blood Cells, Urine 25-50 /hpf (0-5)
[2022-12-28 03:36] LABS: Lithium <0.20 mmol/L (0.60-1.20)
[2022-12-28 04:36] LABS: Base Excess Venous -3.6 mmol/L; Bicarbonate Venous 21.5 mmol/L (24.0-30.0); PCO2 Venous 44.3 mmHg (38-42); pH Blood Venous 7.32 (7.34-7.37)
--- NOTE | 2022-12-28 09:06 | NUR ---
ADMIT NOTE- PT ARRIVED ON MEDICAL FLOOR FOR ADMIT FROM ED. PUPILS 7MM AND SLUGGISH TO RESPOND, PT MUMBLING INCOHERENTLY, FACE HEAD AND NECK RED AND BLOTCHY, HANDS ARE COLD TO THE TOUCH, CAP REFILL ON LEFT IS 9 SECONDS. THE RIGHT IS 5 SECONDS. PT BECAME A LITTLE GURGLY, APPARENTLY UNABLE TO HANDLE HER OWN SECRETIONS, RAISED THE HOB, PT EXTREMITIES ARE LIMP, NO GAG REFLEX. CALLED DR VALLADARES, PT CURRENTLY APPEARS TO NOT BE ABLE TO PROTECT HER AIRWAY AT THIS TIME. HR 52 AT THAT TIME IN TELE NOW DOWN TO 46. NOTIFIED NURSING BOTTLE WASHER MACHINE OF NEED FOR BED. PT TO TRANSFER TO PCU 11. WILL TRANSFER ZULLY.
[2022-12-28 09:09] LABS: Base Excess Venous -4.1 mmol/L; Bicarbonate Venous 21.5 mmol/L (24.0-30.0); PCO2 Venous 31.9 mmHg (38-42); pH Blood Venous 7.42 (7.34-7.37)
[2022-12-28 09:11] LABS: BASOPHILS ABSOLUTE AUTO 0.14 K/mm3 (0.00-0.23); BASOPHILS PERCENT AUTO 1 % (0-2); EOSINOPHILS ABSOLUTE AUTO 0.37 K/mm3 (0.00-0.68); EOSINOPHILS PERCENT AUTO 3 % (0-6); Hematocrit 29.4 % (33.0-51.0); Hemoglobin 8.7 g/dL (11.5-16.0); IMMATURE GRAN ABSOLUTE AUTO 0.15 K/mm3 (0.00-0.10); IMMATURE GRAN PERCENT AUTO 1 % (0-1); LYMPHOCYTES ABSOLUTE AUTO 2.34 K/mm3 (0.84-5.20); LYMPHOCYTES PERCENT AUTO 21 % (21-46); MONOCYTES ABSOLUTE AUTO 0.94 K/mm3 (0.16-1.47); MONOCYTES PERCENT AUTO 8 % (4-13); Mean Corpuscular HGB 27.9 pg (26.0-34.0); Mean Corpuscular HGB Conc 29.6 g/dL (31.5-36.5); Mean Corpuscular Volume 94 fL (80-100); Mean Platelet Volume 9.1 fL (9.1-12.4); NEUTROPHILS ABSOLUTE AUTO 7.32 K/mm3 (1.96-9.15); NEUTROPHILS PERCENT AUTO 65 % (41-73); Platelet Count 576 K/mm3 (150-400); RDW Coefficient Variation 17.9 % (11.7-14.2); RDW Standard Deviation 60.7 fL (35.1-46.3); Red Blood Cell Count 3.12 M/mm3 (3.80-5.20); White Blood Cell Count 11.26 K/mm3 (4.00-11.30)
[2022-12-28 09:26] LABS: Anion Gap 5 mmol/L (6-16); Blood Urea Nitrogen 24 mg/dL (8-24); Bun/Creatinine Ratio 20.7 (12.0-20.0); CO2, Blood 22 mmol/L (21-32); Calcium, Blood 9.2 mg/dL (8.5-10.1); Chloride, Blood 116 mmol/L (98-108); Creatinine, Blood 1.16 mg/dL (0.40-1.00); Glomerular Filtration Rate 58 (60-); Glucose, Blood 91 mg/dL (70-99); Phosphorus, Blood 5.4 mg/dL (2.5-4.9); Potassium, Blood 3.7 mmol/L (3.5-5.5); Sodium, Blood 143 mmol/L (136-145)
--- NOTE | 2022-12-28 10:36 | NUR ---
CARE ASSUMPTION PT ARRIVED TO PCU FROM MEDICAL FLOOR APPROX [id number]. BEDS SWAPPED W/ MEDICAL RN. PT LETHARGIC, OPENED EYES, MOANED, RAISED ARM TO CEILING AND POINTED. THEN PLACED ARM BY SIDE AND CLOSED EYES ONCE AGAIN. PUPILS NOTED 4/5. DOES NOT FOLLOW COMMANDS. SP02>90% ON RA. TELEMETRY SHOWS SINUS TANIA, HR 43-50'S PER BINDERY CHIEF. PT HAS NOT VOIDED SINCE ADMIT PER MEDICAL RN, ATTENDS IN PLACE. SKIN HAS REDDENED AREA AROUND SIDES OF NECK UP TO FOREHEAD. IV PATENT, ABX GIVEN PER EMAR. ORAL MEDICATIONS HELD D/T AMS/NPO. SCD'S ON PER EMAR. SEIZURE PADS PLACED ON BED PER ORDERS. CALL LIGHT IN REACH.
--- NOTE | 2022-12-28 18:40 | NUR ---
shift summary no acute changes since care assumption. vss. pt alert, not following commands. pt states, "sorry about the mayonaise" and "how much left do i owe on my fish tank?" Pt moving all extremeties in bed, reaching towards ceiling. cbg at noon was 72. call placed to MD Galvan. MD Galvan w/ orders for d5 gtt, see emar. abx infused per emar. Pt straight cath'd this shift, UA sent to lab. Call light in reach. Bed alarm on.
[2022-12-29 04:06] LABS: BASOPHILS ABSOLUTE AUTO 0.13 K/mm3 (0.00-0.23); BASOPHILS PERCENT AUTO 2 % (0-2); EOSINOPHILS ABSOLUTE AUTO 0.39 K/mm3 (0.00-0.68); EOSINOPHILS PERCENT AUTO 5 % (0-6); Hematocrit 27.6 % (33.0-51.0); Hemoglobin 8.6 g/dL (11.5-16.0); IMMATURE GRAN ABSOLUTE AUTO 0.04 K/mm3 (0.00-0.10); IMMATURE GRAN PERCENT AUTO 1 % (0-1); LYMPHOCYTES ABSOLUTE AUTO 1.65 K/mm3 (0.84-5.20); LYMPHOCYTES PERCENT AUTO 21 % (21-46); MONOCYTES ABSOLUTE AUTO 0.88 K/mm3 (0.16-1.47); MONOCYTES PERCENT AUTO 11 % (4-13); Mean Corpuscular HGB 28.2 pg (26.0-34.0); Mean Corpuscular HGB Conc 31.2 g/dL (31.5-36.5); Mean Corpuscular Volume 91 fL (80-100); Mean Platelet Volume 8.9 fL (9.1-12.4); NEUTROPHILS PERCENT AUTO 60 % (41-73); Platelet Count 513 K/mm3 (150-400); RDW Coefficient Variation 17.3 % (11.7-14.2); RDW Standard Deviation 56.6 fL (35.1-46.3); Red Blood Cell Count 3.05 M/mm3 (3.80-5.20); White Blood Cell Count 7.79 K/mm3 (4.00-11.30)
[2022-12-29 04:28] LABS: Albumin/Globulin Ratio 0.4 (0.8-1.8); Bilirubin, Total 0.3 mg/dL (0.1-1.0); Bun/Creatinine Ratio 17.5 (12.0-20.0); Calcium, Blood 8.7 mg/dL (8.5-10.1); Creatinine, Blood 1.26 mg/dL (0.40-1.00); Globulin, Blood 4.8 g/dL (2.2-4.0); Magnesium, Blood 2.3 mg/dL (1.6-2.4); Potassium, Blood 3.5 mmol/L (3.5-5.5); Total Protein, Blood 6.8 g/dL (6.4-8.2)
--- NOTE | 2022-12-29 06:01 | NUR ---
SHIFT SUMMARY PT IS CONFUSED, BUT CAN MAKE SOME OF HER NEEDS KNOWN. SHE IS BED REST, Q2 HR TURN, AND BEDPAN FOR BATHROOM USE. PT HAS A D5 GTT RUNNING AND HAS Q6 CBG'S. CBG'S HAVE BEEN STABLE. PT IS ON ROOM AIR W/ SP02 >95% AND SHE HAS DENIED SOB. ON TELE THE PT HAS BEEN SR 80'S-90'S W/O AND C/O ANIGNA OR CHEST PRESSURE. NO ACUTE EVENTS. HER BED ALARM IS ON, CALL LIGHT IN REACH, AND BED IS IN A LOW POSITION. I WILL CONTINUE TO MONITOR UNTIL SHIFT REPORT IS GIVEN TO THE ONCOMING SHIFT RN. SEE NOTES FOR ANY UPDATES.
--- NOTE | 2022-12-29 18:03 | NUR ---
SHIFT SUMMARY PT UP FROM PCU THIS AFTERNOON. PT ALERT AND ORIENTED,CALLS APPROPRIATELY. PT ON RA, SBA WITH FWW. PT SEEN BY DR GOMEZ. FAMILY AT BEDSIDE. NO NEEDS VOICED. WILL CONTINUE TO MONITOR CALL LIGHT WITHIN REACH.
--- NOTE | 2022-12-30 03:18 | NUR ---
BILLIARD PLAYER SUMMARY DIASTOLIC BP ELEVATED, OTHERWISE VSS. HAD FAMILY VISITORS AT SHIFT COMMENCE. VOICED INTERMITTENT FRUSTRATIONS RE MEDS SHE WAS USED TO TAKING BUT WERE NOT ON HER MAR AT THE TIME. MD NOTIFIED AND WERE ORDERED - SEE MAR FOR DETAILS. ALERT AND ORIENTED. EASILY IRRITATED. HAS BEEN RESTING QUIETLY AT INTERVALS. WAKING UP AT TIMES WITH C/O PAIN - NERVE AND MUSCLE. SEE MAR FOR DETAIS OF MEDS GIVEN. RESTING QUIETLY AT THIS TIME. CALL LIGHT IN REACH. WILL CONTINUE TO MONITOR
[2022-12-30] MEDS ORDERED: ELIQUIS5 M2 PO (11:53)
--- NOTE | 2022-12-30 14:48 | NUR ---
PT DISCHARGED TODAY WITH DAUGHTER TO TRANSPORT HOME. PT AOX4 AND COOPERATIVE IF CARE. PT INDEPENDENT IN ROOM AND MADE ALL NEEDS KNOWN. MEDICATIONS FAXED AND CALLED INTO [facility] FOR TENANT RELATIONS COORDINATOR. NO DISTRESS NOTED PERSONAL BELONGINGS TAKEN WITH PT.
== END 2022-12-30 13:49 | disposition home health service (06) | DRG 92 ==
LOC: ER 23:13 → ERHOLD 23:14 → MEDS 12-28 08:25 → PCU 12-28 10:02 → MEDS 12-28 14:53 → PCU 12-28 14:54 → MEDS 12-29 16:00
PROVIDERS: Family Medicine; Student in an Organized Health Care Education/Training Program; ADMIT Student in an Organized Health Care Education/Training Program
DX: G92.8 Other toxic encephalopathy (principal); F33.3 Major depressive disorder, recurrent, severe with psychotic symptoms; T42.8X5A Adverse effect of antiparkinsonism drugs and other central muscle-tone depressants, initial encounter; N18.30 Chronic kidney disease, stage 3 unspecified; D63.1 Anemia in chronic kidney disease; F15.10 Other stimulant abuse, uncomplicated; F12.10 Cannabis abuse, uncomplicated; G40.409 Other generalized epilepsy and epileptic syndromes, not intractable, without status epilepticus; G43.709 Chronic migraine without aura, not intractable, without status migrainosus; I12.9 Hypertensive chronic kidney disease with stage 1 through stage 4 chronic kidney disease, or unspecified chronic kidney disease; M79.7 Fibromyalgia; G89.29 Other chronic pain; F90.9 Attention-deficit hyperactivity disorder, unspecified type; F17.210 Nicotine dependence, cigarettes, uncomplicated; Z98.890 Other specified postprocedural states; Z98.51 Tubal ligation status; Z95.828 Presence of other vascular implants and grafts; Z88.0 Allergy status to penicillin; Z88.8 Allergy status to other drugs, medicaments and biological substances; Z88.2 Allergy status to sulfonamides; Z86.718 Personal history of other venous thrombosis and embolism; Z88.5 Allergy status to narcotic agent; Z79.899 Other long term (current) drug therapy; Z79.01 Long term (current) use of anticoagulants; Z79.51 Long term (current) use of inhaled steroids; Z79.52 Long term (current) use of systemic steroids; Z90.49 Acquired absence of other specified parts of digestive tract
CPT/HCPCS: 36415; 70450; 80053; 80069; 80178; 80307; 81001; 82803; 82947; 83735; 84443; 85025; 85610; 87086; 93005; 93010; 94640; 94664; 94760; 96365; 96367; 96375; 97110; 97116; 97162; 97165; 97530; 99285-25; A9270; G0378; G0480; J0696; J0744; J1650; J1953; J3370; J7042; J7050

== ENCOUNTER 2023-01-01 14:10 | Emergency (ER) | payer MEDICARE, OTHER ==
[~2023-01-01] VITALS: Ht 160 cm; Wt 57.1 kg
[~2023-01-01 14:10] MED LIST changes: +ELIQUIS5 M2 PO
[2023-01-01 17:27] LABS: BASOPHILS ABSOLUTE AUTO 0.19 K/mm3 (0.00-0.23); BASOPHILS PERCENT AUTO 2 % (0-2); EOSINOPHILS PERCENT AUTO 6 % (0-6); Hematocrit 33.6 % (33.0-51.0); IMMATURE GRAN ABSOLUTE AUTO 0.08 K/mm3 (0.00-0.10); IMMATURE GRAN PERCENT AUTO 1 % (0-1); LYMPHOCYTES ABSOLUTE AUTO 2.02 K/mm3 (0.84-5.20); LYMPHOCYTES PERCENT AUTO 22 % (21-46); MONOCYTES ABSOLUTE AUTO 0.81 K/mm3 (0.16-1.47); MONOCYTES PERCENT AUTO 9 % (4-13); Mean Corpuscular HGB 27.9 pg (26.0-34.0); Mean Corpuscular HGB Conc 29.8 g/dL (31.5-36.5); Mean Corpuscular Volume 94 fL (80-100); Mean Platelet Volume 9.4 fL (9.1-12.4); NEUTROPHILS ABSOLUTE AUTO 5.54 K/mm3 (1.96-9.15); NEUTROPHILS PERCENT AUTO 61 % (41-73); Platelet Count 453 K/mm3 (150-400); RDW Coefficient Variation 18.5 % (11.7-14.2); RDW Standard Deviation 63.1 fL (35.1-46.3); Red Blood Cell Count 3.58 M/mm3 (3.80-5.20); White Blood Cell Count 9.14 K/mm3 (4.00-11.30)
[2023-01-01 17:48] LABS: Albumin, Blood 2.7 g/dL (3.4-5.0); Albumin/Globulin Ratio 0.5 (0.8-1.8); Bilirubin, Total 0.2 mg/dL (0.1-1.0); Bun/Creatinine Ratio 23.1 (12.0-20.0); Calcium, Blood 9.7 mg/dL (8.5-10.1); Creatinine, Blood 1.21 mg/dL (0.40-1.00); Globulin, Blood 5.8 g/dL (2.2-4.0); Potassium, Blood 4.1 mmol/L (3.5-5.5); Total Protein, Blood 8.5 g/dL (6.4-8.2)
[2023-01-02] MEDS ORDERED: ACET500 PO (21:50)
== END 2023-01-01 18:25 | disposition home or self-care (01) ==
LOC: ER 14:10
PROVIDERS: Student in an Organized Health Care Education/Training Program
DX: R09.02 Hypoxemia (principal); T50.915A Adverse effect of multiple unspecified drugs, medicaments and biological substances, initial encounter; I10 Essential (primary) hypertension; Z88.0 Allergy status to penicillin; Z88.6 Allergy status to analgesic agent; Z88.2 Allergy status to sulfonamides; Z88.5 Allergy status to narcotic agent; Z79.899 Other long term (current) drug therapy; Z79.01 Long term (current) use of anticoagulants; Z87.891 Personal history of nicotine dependence
CPT/HCPCS: 36415; 71046; 80053; 85025; 93005; 93010; 96360; 99284-25; J7030

== ENCOUNTER 2023-01-02 16:02 | Observation (INO) | payer MEDICARE, OTHER ==
[~2023-01-02] VITALS: Ht 165.1 cm; Wt 57.2 kg
[2023-01-02 16:50] LABS: Calcium, Ionized (POC) 1.37 mmol/L (1.10-1.46); Chloride (POC) 111 mmol/L (98-108); Creatinine (POC) 1.4 mg/dL (0.6-1.0); Glucose (ISTAT POC) 88 mg/dL (70-99); Hemoglobin (POC) 9.2 g/dL (12.0-16.0); Potassium (POC) 4.2 mmol/L (3.5-5.5); Sodium (POC) 144 mmol/L (135-148); Total CO2 (POC) 22 mmol/L (21-32)
[2023-01-02 17:15] LABS: Base Excess Venous -3.4 mmol/L; Bicarbonate Venous 21.7 mmol/L (24.0-30.0); PCO2 Venous 41.7 mmHg (38-42); pH Blood Venous 7.34 (7.34-7.37)
[2023-01-02 17:16] LABS: BASOPHILS ABSOLUTE AUTO 0.19 K/mm3 (0.00-0.23); BASOPHILS PERCENT AUTO 3 % (0-2); EOSINOPHILS ABSOLUTE AUTO 0.49 K/mm3 (0.00-0.68); EOSINOPHILS PERCENT AUTO 7 % (0-6); Hematocrit 28.8 % (33.0-51.0); Hemoglobin 8.7 g/dL (11.5-16.0); IMMATURE GRAN ABSOLUTE AUTO 0.03 K/mm3 (0.00-0.10); IMMATURE GRAN PERCENT AUTO 0 % (0-1); LYMPHOCYTES ABSOLUTE AUTO 2.37 K/mm3 (0.84-5.20); LYMPHOCYTES PERCENT AUTO 32 % (21-46); MONOCYTES ABSOLUTE AUTO 0.99 K/mm3 (0.16-1.47); MONOCYTES PERCENT AUTO 13 % (4-13); Mean Corpuscular HGB 28.3 pg (26.0-34.0); Mean Corpuscular HGB Conc 30.2 g/dL (31.5-36.5); Mean Corpuscular Volume 94 fL (80-100); Mean Platelet Volume 9.6 fL (9.1-12.4); NEUTROPHILS ABSOLUTE AUTO 3.44 K/mm3 (1.96-9.15); NEUTROPHILS PERCENT AUTO 46 % (41-73); Platelet Count 386 K/mm3 (150-400); RDW Coefficient Variation 18.8 % (11.7-14.2); Red Blood Cell Count 3.07 M/mm3 (3.80-5.20); White Blood Cell Count 7.51 K/mm3 (4.00-11.30)
[2023-01-02 17:39] LABS: Source, Urine Straight Cath
[2023-01-02 17:43] LABS: Bilirubin, Urine Neg (Neg); Blood, Urine 1+ (Neg); Glucose Qualitative, Urine Neg (Neg); Ketones, Urine Neg (Neg); Leukocyte Esterase, Urine 1+ (Neg); Nitrite, Urine Neg (Neg); Protein, Urine 1+ (Neg); Urobilinogen, Urine NORM (Normal)
[2023-01-02 17:48] LABS: Magnesium, Blood 2.7 mg/dL (1.6-2.4)
[2023-01-02 17:52] LABS: Albumin, Blood 2.4 g/dL (3.4-5.0); Albumin/Globulin Ratio 0.5 (0.8-1.8); Bilirubin, Total 0.2 mg/dL (0.1-1.0); Bun/Creatinine Ratio 16.5 (12.0-20.0); Calcium, Blood 9.1 mg/dL (8.5-10.1); Creatinine, Blood 1.27 mg/dL (0.40-1.00); Globulin, Blood 4.9 g/dL (2.2-4.0); Potassium, Blood 4.1 mmol/L (3.5-5.5); Thyroid Stimulating Hormone 3.19 uIU/mL (0.360-4.800); Total Protein, Blood 7.3 g/dL (6.4-8.2)
[2023-01-02 17:53] LABS: Appearance, Urine Clear (Clear); Color, Urine Pale Yellow (P-Yellow)
[2023-01-02 17:55] LABS: Bacteria Mod /hpf; Squamous Epithelial Cells Few /hpf (Few); Transitional Epithelial Cells Rare /hpf (0-Rare)
[2023-01-02 19:59] LABS: U Amphetamine Screen Not Detected; U Barbituate Screen Not Detected; U Benzodiazapine Screen Not Detected; U Buprenorphine Screen Not Detected; U Cannabinoids Screen Not Detected; U Cocaine Screen Not Detected; U Methadone Screen Not Detected; U Methamphetamine Screen Not Detected; U Opiates Screen Not Detected; U Oxycodone Screen Not Detected; U Phencyclidine Screen Not Detected; U Propoxyphene Screen Not Detected
[2023-01-02] MEDS ORDERED: ACET500 PO (21:50)
--- NOTE | 2023-01-02 23:12 | NUR ---
ARRIVAL TO ICU 13 PT ARRIVED VIA ED [facility]. RESPONDING TO VERBAL STIMULI WITH ONE-TWO WORDS. MUMBLED AND DIFFICULT TO UNDERSTAND. NOT FOLLOWING DIRECTIONS OR TRACKING NURSE. WHILE TALKING TO DAUGHTER, PT SPONTANEOUSLY WOKE UP. ABLE TO STATE NAME, LOCATION, AND YEAR. STATED "WHY AM I BACK HERE?". PT STATED SHE DOES NOT REMEMBER WHAT HAPPENED OR WHY SHE IS HERE. PT THEN FELL BACK ASLEEP. PT NOW MUMBLING WORDS, NOT FOLLOWING DIRECTIONS AND PICKING AT THE BLANKETS. ON 2L NC, WITH SPO2 GREATER THAN 90%. SINUS TANIA RATE 38-50'S. SBP 130'S. HANDS AND FEET COOL AND DUSKY. BEAR HUGGER APPLIED. REYNOLDS PATENT AND DRAINING TO GRAVITY.
--- NOTE | 2023-01-03 00:54 | NUR ---
CALL TO HOSP HOSP CALLED REGARDING CBG OF 56. ONE AMP D50 ORDERED AND ADMINISTERED. REPEAT CBG 133 AFTER 30 MINS.
--- NOTE | 2023-01-03 02:34 | NUR ---
CALL TO HOSP CALL MADE TO HOSP TO CONFIRM ORDER OF D51/2NS c 20MEQ OF K AND K LEVEL OF 4.1 PREVIOUSLY. HOSP CONFIRMED ORDER IS CORRECT. ALSO ASKED ABOUT SWITCHING KEPPRA FROM PO TO IV D/T NPO STATUS. NO NEW ORDERS AT THIS TIME.
[2023-01-03 03:43] LABS: BASOPHILS ABSOLUTE AUTO 0.19 K/mm3 (0.00-0.23); BASOPHILS PERCENT AUTO 2 % (0-2); EOSINOPHILS ABSOLUTE AUTO 0.42 K/mm3 (0.00-0.68); EOSINOPHILS PERCENT AUTO 3 % (0-6); Hematocrit 31.9 % (33.0-51.0); Hemoglobin 9.6 g/dL (11.5-16.0); IMMATURE GRAN ABSOLUTE AUTO 0.06 K/mm3 (0.00-0.10); IMMATURE GRAN PERCENT AUTO 1 % (0-1); LYMPHOCYTES ABSOLUTE AUTO 2.02 K/mm3 (0.84-5.20); LYMPHOCYTES PERCENT AUTO 17 % (21-46); MONOCYTES ABSOLUTE AUTO 1.29 K/mm3 (0.16-1.47); MONOCYTES PERCENT AUTO 11 % (4-13); Mean Corpuscular HGB 28.5 pg (26.0-34.0); Mean Corpuscular HGB Conc 30.1 g/dL (31.5-36.5); Mean Corpuscular Volume 95 fL (80-100); Mean Platelet Volume 9.3 fL (9.1-12.4); NEUTROPHILS PERCENT AUTO 67 % (41-73); Platelet Count 357 K/mm3 (150-400); RDW Coefficient Variation 18.8 % (11.7-14.2); RDW Standard Deviation 65.1 fL (35.1-46.3); Red Blood Cell Count 3.37 M/mm3 (3.80-5.20); White Blood Cell Count 12.18 K/mm3 (4.00-11.30)
[2023-01-03 04:00] LABS: Bun/Creatinine Ratio 15.1 (12.0-20.0); Calcium, Blood 9.3 mg/dL (8.5-10.1); Creatinine, Blood 1.26 mg/dL (0.40-1.00); Potassium, Blood 4.2 mmol/L (3.5-5.5)
--- NOTE | 2023-01-03 05:19 | NUR ---
SHIFT SUMMARY PT HAS PERIODS WHERE SHE IS A/O X 3, FOLLOWING DIRECTIONS, AND TRACKING NURSE. OTHER TIMES SHE IS A/O X 1, REPEATING THE SAME WORDS, AND UNABLE TO TRACK NURSE. PT HAS LESS BRADYCARDIA THIS AM. SR 60-70'S. PT ALSO HAVING LESS PERIODS OF APNEA. ON 2L NC. VSS. FAINT TREMOR NOTED IN HEAD/EXTREMITIES AT TIMES. D51/2NS W/ 20MEQ K INFUSING AT 75ML/HR. REYNOLDS PATENT AND DRAINING TO GRAVITY W/ GOOD OUTPUT. BED ALARM IN PLACE. WILL REPORT OFF TO ONCOMING NURSE.
--- NOTE | 2023-01-03 08:30 | NUR ---
INITIAL ASSESSMENT PATIENT POINTING TO CORNER OF ROOM AND TALKING TO SELF WHEN NURSE ENTERED. PATIENT ASKED WHAT SHE IS POINTING AT AND SPEAKING ABOUT AND PATIENT STATED SHE WAS TALKING "TO THE SARAI IN THE CORNER". PATIENT ANSWERED ALL ORIENTATION QUESTIONS CORRECTLY. SPEECH SLIGHTLY MUMBLED. HEAD TWITCHING/ TREMORS NOTED. FLAT AFFECT NOTED. PATIENT ASKED IF SHE SEES A NEUROLOGIST OUTPATIENT AND PATIENT REPLIES "I AM SUPPOSED TO". PATIENT ASKED WHY SHE IS SUPPOSED TO SEE NEUROLOGIST OUTPATIENT AND AGAIN REPLIES "SUPPOSED TO". PATIENT STATES SHE HAS SOME NECK PAIN AND TAKES BACLOFEN AND LYRICA AT HOME FOR IT. PATIENT AFEBRILE. PATIENT DECREASED FROM 2 L NC TO RA AND REMAINS SATTING GREATER THAN 80%. LUNGS CLEAR THROUGHOUT. PATIENT IN SR, HR IN THE 70S. SBP LOW 100S TO 120S. SCDS APPLIED TO LEGS. PATIENT NPO. HYPERACTIVE BOWEL SOUNDS NOTED. DATE OF LAST BM UNKNOWN. TEMP PROBE REYNOLDS DRAINING YELLOW COLORED URINE. BRUISE NOTED TO R NECK; GAUZE AND TAPE REMOVED IF THIS WAS A PREVIOUS IV SITE. PURPURA NOTED TO CHEST. COCCYX REDDENED. D5W 1/2 NS KCL 20 MEQ INFUSING AT 75 MLS/ HOUR. BED LOW, CALL LIGHT IN REACH. WILL CONTINUE TO MONITOR PATIENT FREQUENTLY THROUGHOUT SHIFT.
--- NOTE | 2023-01-03 08:37 | NUR ---
DR. PERERA UPDATED ON PATIENT. INFORMED THAT PATIENT HAS KEPPRA AND ELIQUIS ORDERED BUT THAT SHE IS NPO AT THIS TIME. INFORMED OF NEURO STATUS STATED IN INITIAL ASSESSMENT. INFORMED THAT NIGHT CHARGE NURSE STATED PATIENT WOKE UP MORE AFTER D50 GIVEN FOR BLOOD SUGAR IN THE 50S. INFORMED THAT PRIMARY NURSE STATED THAT AT ONE POINT (BEFORE D50 GIVEN) THAT PATIENT WOKE UP ALERT AND OREINTED, WENT BACK TO SLEEP, AND THEN WOKE BACK UP CONFUSION AND WITH MUMBLED SPEECH.
--- NOTE | 2023-01-03 12:00 | NUR ---
PATIENT AFEBRILE. NO COMPLAINTS OF PAIN. HR IN THE 80S. SBP IN THE 150S. BLOOD SUGAR OF 86. PATIENT HAS HAD NO HALLUCINATIONS SINCE THE ONE TIME THIS AM. PATIENT STATED SHE USES WALKER AT HOME MOST TIMES. PATIENT SLOWLY AMBULATED AROUND ROOM WITH FWW AND NURSE AND TOLERATED WELL; NO COMPLAINTS OF FEELING LIGHTHEADED. NO OTHER ACUTE CHANGES TO NOTE ON AT THIS TIME. WILL CONTINUE TO MONITOR.
--- NOTE | 2023-01-03 13:42 | NUR ---
DR. PERERA UPDATED ON PATIENT STATUS. INFORMED THAT PATIENT AMBULATED WELL IN ROOM WITH FWW AND 1 PERSON ASSIST. INFORMED THAT PATIENT STATED SHE WAS SU[facility]ED TO [facility] 6 [facility]THS AFTER LAST PROCEDURE FOR LEG DVT AND THAT THEY WERE GOING TO TAKE HER OFF OF THE BLOOD THINNER; PATIENT STATED THAT IT HAS NOW BEEN 8 MONTHS. INFORMED THAT PATIENT HAS HAD NO HALLUCINATIONS AND HAS BEEN AWAKE, ALERT AND ORIENTED ALL SHIFT. ORDER OBTAINED TO CHANGE TO MEDICAL FLOOR STATUS.
--- NOTE | 2023-01-03 16:48 | NUR ---
SHIFT SUMMARY PATIENT HAS BEEN ALERT AND ORIENTED ALL DAY AFTER THIS AM. PATIENT WEAK BUT ABLE TO WALK AROUND WITH 1 PERSON ASSIST AND FWW. PATIENT USES WALKER AT HOME. PATIENT HAS REMAINED AFEBRILE. PATIENT HAS BEEN SATTING 90% AND GREATER ON RA. PATIENT HAS BEEN SB TO SR. HR AND BP HAVE REMAINED STABLE. PATIENT PLACED ON SOFT DIET THIS SHIFT. PATIENT HAS STRONG APPETITE. PATIENT HAS HAD 3 BMS THIS SHIFT. REYNOLDS DC'D THIS SHIFT AND ATTENDS PLACED. GOOD URINE OUTPUT THIS SHIFT. NO CHANGES TO SKIN NOTED. LYRICA, BACLOFEN AND PROPRANALOL STARTED THIS SHIFT. BLOOD CULTURE CAME BACK POSITIVE FOR GRAM + COCCI IN CLUSTERS. DR. PERERA CALLED AND INFORMED. PATIENT WILL BE TRANSFERRING TO MEDICAL FLOOR, ROOM 334 SHORTLY.
--- NOTE | 2023-01-03 16:59 | NUR ---
PATIENT SUCCESSFULLY TRANSFERRED TO MEDICAL FLOOR. ALL BELONGINGS SENT WITH PATIENT. DAUGHTER SERENITY CALLED AND INFORMED.
--- NOTE | 2023-01-03 18:17 | NUR ---
pt transferred from icu. has been pleasant talkative. no c/o pain. lungs are clear, resp easy, unlabored. on r.a. talking on phone to family. vss. cbg 78. no new concerns noted. bed in low position, call lite in reach, calls approp.
[2023-01-04 10:07] LABS: Phosphorus, Blood 6.7 mg/dL (2.5-4.9)
[2023-01-04] MEDS ORDERED: FOLI1 PO (13:28)
[2023-01-04] MEDS ORDERED: NICO21TP TOP (13:29)
--- NOTE | 2023-01-04 14:12 | NUR ---
PT DISCHARGED HOME. DISCHARGE INSTRUCTIONS AND EDUCATION MATERIAL EXPLAINED TO PT. MEDICATION LIST REVIEWED WITH PT AND QUESTIONS ANSWERED ABOUT WHEN TO TAKE MEDS. PT INDEPENDENTLY DRESSED EARLIER IN THE MORNING. IV ALREADY DC'D BY PAYROLL AND BENEFITS COORDINATOR. PT VERBILIZED NO NEW QUESTIONS OR CONCERNS. ALL BELONGINGS SENT HOME WITH PT. PT TAKEN BY WHEELCAIR TO WAITING VEHICLE.
== END 2023-01-04 13:56 | disposition home or self-care (01) ==
LOC: ER 16:02 → PCU 19:55 → ICUW 21:26 → MEDS 01-03 17:01
PROVIDERS: Emergency Medicine; Family Medicine; ADMIT Student in an Organized Health Care Education/Training Program
DX: G93.40 Encephalopathy, unspecified (principal); N18.30 Chronic kidney disease, stage 3 unspecified; D63.8 Anemia in other chronic diseases classified elsewhere; F33.3 Major depressive disorder, recurrent, severe with psychotic symptoms; F31.9 Bipolar disorder, unspecified; F17.200 Nicotine dependence, unspecified, uncomplicated; F15.11 Other stimulant abuse, in remission; F12.91 Cannabis use, unspecified, in remission; Z86.718 Personal history of other venous thrombosis and embolism; Z86.69 Personal history of other diseases of the nervous system and sense organs; Z88.2 Allergy status to sulfonamides; Z88.6 Allergy status to analgesic agent; Z88.5 Allergy status to narcotic agent; Z88.0 Allergy status to penicillin; Z88.8 Allergy status to other drugs, medicaments and biological substances; Z79.899 Other long term (current) drug therapy; Z79.01 Long term (current) use of anticoagulants
CPT/HCPCS: 36415; 51702; 70450; 71045; 80047; 80048; 80053; 81001; 82140; 82607; 82746; 82803; 82947; 83605; 83735; 83880; 84100; 84145; 84443; 84484; 85014; 85025; 87040; 87086; 93005; 93010; 94640; 94664; 94760; 94762; 96360-59; 96365; 96366; 96372-59; 99285-25; A9270; G0378; J2310; J3370; J7030; J7050; J7120

== ENCOUNTER 2024-03-14 12:40 | Emergency (ER) | payer MEDICARE, OTHER ==
[~2024-03-14] VITALS: Ht 160 cm; Wt 87.5 kg
[~2024-03-14 12:40] MED LIST changes: +ACET500 PO; +FLUT.05NI; +FOLI1 PO; +LEVOCETIRIZINE D5 MG PO; +LIDOCAINE1 EACH TOP; +NICO21TP TOP; +Propranolol HCl60 MG PO
[2024-03-14] MEDS ORDERED: NS 1,000 ML IV SCH (13:25)
[2024-03-14 13:40] LABS: BASOPHILS ABSOLUTE AUTO 0.07 K/mm3 (0.00-0.23); BASOPHILS PERCENT AUTO 1 % (0-2); EOSINOPHILS ABSOLUTE AUTO 0.15 K/mm3 (0.00-0.68); EOSINOPHILS PERCENT AUTO 2 % (0-6); Hematocrit 39.4 % (33.0-51.0); Hemoglobin 13.3 g/dL (11.5-16.0); IMMATURE GRAN ABSOLUTE AUTO 0.04 K/mm3 (0.00-0.10); IMMATURE GRAN PERCENT AUTO 1 % (0-1); LYMPHOCYTES ABSOLUTE AUTO 1.21 K/mm3 (0.84-5.20); LYMPHOCYTES PERCENT AUTO 15 % (21-46); MONOCYTES ABSOLUTE AUTO 0.57 K/mm3 (0.16-1.47); MONOCYTES PERCENT AUTO 7 % (4-13); Mean Corpuscular HGB 31.3 pg (26.0-34.0); Mean Corpuscular HGB Conc 33.8 g/dL (31.5-36.5); Mean Corpuscular Volume 93 fL (80-100); NEUTROPHILS ABSOLUTE AUTO 6.18 K/mm3 (1.96-9.15); NEUTROPHILS PERCENT AUTO 75 % (41-73); RDW Coefficient Variation 12.6 % (11.7-14.2); Red Blood Cell Count 4.25 M/mm3 (3.80-5.20); White Blood Cell Count 8.22 K/mm3 (4.00-11.30)
[2024-03-14 13:59] LABS: Albumin, Blood 3.3 g/dL (3.4-5.0); Bilirubin, Total 0.3 mg/dL (0.1-1.0); Bun/Creatinine Ratio 23.1 (12.0-20.0); Calcium, Blood 8.7 mg/dL (8.5-10.1); Globulin, Blood 3.3 g/dL (2.2-4.0); Potassium, Blood 3.7 mmol/L (3.5-5.5); Total Protein, Blood 6.6 g/dL (6.4-8.2)
[2024-03-14 14:30] VITALS: BP 158/97
[2024-03-14 14:31] LABS: Mean Platelet Volume 9.6 fL (9.1-12.4); Platelet Count 208 K/mm3 (150-400)
[2024-03-14] MEDS ORDERED: Metoprolol Succinate 25 MG TABCR PO ONE (15:10)
[2024-03-14] MEDS ORDERED: Lopressor 25 mg25 MG PO (16:34)
== END 2024-03-14 16:50 | disposition home or self-care (01) ==
LOC: ER 12:40
PROVIDERS: Emergency Medicine
DX: R07.9 Chest pain, unspecified (principal); I10 Essential (primary) hypertension; M16.11 Unilateral primary osteoarthritis, right hip; G43.909 Migraine, unspecified, not intractable, without status migrainosus; F17.200 Nicotine dependence, unspecified, uncomplicated; Z88.6 Allergy status to analgesic agent; Z88.5 Allergy status to narcotic agent; Z91.018 Allergy to other foods; Z88.8 Allergy status to other drugs, medicaments and biological substances; Z79.51 Long term (current) use of inhaled steroids; Z79.899 Other long term (current) drug therapy
CPT/HCPCS: 73502; 80053; 83690; 84484; 84703; 85025; 93005; 93010; 96360; 99285-25; A9270; J7030

== ENCOUNTER → 2025-08-02 | Outpatient (CLI) | payer MEDICARE, OTHER ==
[~2025-08-02] MED LIST changes: +Lopressor 25 mg25 MG PO
[2025-08-02 13:14] LABS: BASOPHILS ABSOLUTE AUTO 0.08 K/mm3 (0.00-0.23); BASOPHILS PERCENT AUTO 2 % (0-2); EOSINOPHILS ABSOLUTE AUTO 0.21 K/mm3 (0.00-0.68); EOSINOPHILS PERCENT AUTO 4 % (0-6); Hematocrit 38.7 % (33.0-51.0); Hemoglobin 12.9 g/dL (11.5-16.0); IMMATURE GRAN ABSOLUTE AUTO 0.01 K/mm3 (0.00-0.10); IMMATURE GRAN PERCENT AUTO 0 % (0-1); LYMPHOCYTES ABSOLUTE AUTO 1.26 K/mm3 (0.84-5.20); LYMPHOCYTES PERCENT AUTO 24 % (21-46); MONOCYTES ABSOLUTE AUTO 0.61 K/mm3 (0.16-1.47); MONOCYTES PERCENT AUTO 11 % (4-13); Mean Corpuscular HGB Conc 33.3 g/dL (31.5-36.5); Mean Corpuscular Volume 92 fL (80-100); NEUTROPHILS ABSOLUTE AUTO 3.19 K/mm3 (1.96-9.15); NEUTROPHILS PERCENT AUTO 60 % (41-73); NRBC ABSOLUTE 0.00 K/mm3 (0.00-0.02); NRBC Auto 0.0 /100 WBC (0.0-0.2); Platelet Count 288 K/mm3 (150-400); RDW Coefficient Variation 13.2 % (11.7-14.2); RDW Standard Deviation 43.8 fL (35.1-46.3)
[2025-08-02 14:06] LABS: Alanine Aminotransfer (ALT/SGP 34 U/L (12-78); Albumin, Blood 3.6 g/dL (3.4-5.0); Albumin/Globulin Ratio 1.2 (0.8-1.8); Anion Gap 9 mmol/L (3-11); Aspartate Aminotrans (AST/SGOT 26 U/L (12-37); Bilirubin, Total 0.3 mg/dL (0.1-1.0); Blood Urea Nitrogen 32 mg/dL (8-24); CO2, Blood 26 mmol/L (21-32); Calcium, Blood 9.3 mg/dL (8.5-10.1); Chloride, Blood 112 mmol/L (98-108); Creatinine, Blood 1.39 mg/dL (0.40-1.00); Globulin, Blood 3.1 g/dL (2.2-4.0); Glucose, Blood 79 mg/dL (70-99); Potassium, Blood 4.5 mmol/L (3.5-5.5); Sodium, Blood 142 mmol/L (136-145); Total Protein, Blood 6.7 g/dL (6.4-8.2)
[2025-08-02 14:57] LABS: LDL/HDL RATIO 0.4; Very Low Density Lipoprot Chol 14 mg/dL (6-32)
[2025-08-02 14:58] LABS: CHOL/HDL RATIO 1.6; Cholesterol 134 mg/dL (50-200); HDL Cholesterol 83 mg/dL (>39); Low Density Lipoprotein Chol 37 mg/dL (0-110); Triglycerides 71 mg/dL (30-160)
[2025-08-02 15:31] LABS: Thyroid Stimulating Hormone 0.869 uIU/mL (0.360-4.800)
== END ==
LOC: LAB SHORT 12:05 → LAB 12:05
PROVIDERS: Student in an Organized Health Care Education/Training Program
DX: Z00.00 Encounter for general adult medical examination without abnormal findings (principal); G62.89 Other specified polyneuropathies; I10 Essential (primary) hypertension; Z13.1 Encounter for screening for diabetes mellitus
CPT/HCPCS: 80053; 80061; 83036; 84443; 85025

== ENCOUNTER 2025-09-10 12:52 | Emergency (ER) | payer MEDICARE, OTHER ==
[~2025-09-10] VITALS: Ht 162.6 cm; Wt 52.2 kg
[2025-09-10 13:32] LABS: BASOPHILS ABSOLUTE AUTO 0.11 K/mm3 (0.00-0.23); BASOPHILS PERCENT AUTO 2 % (0-2); EOSINOPHILS ABSOLUTE AUTO 0.16 K/mm3 (0.00-0.68); EOSINOPHILS PERCENT AUTO 3 % (0-6); Hematocrit 44.9 % (33.0-51.0); Hemoglobin 15.3 g/dL (11.5-16.0); IMMATURE GRAN ABSOLUTE AUTO 0.01 K/mm3 (0.00-0.10); IMMATURE GRAN PERCENT AUTO 0 % (0-1); LYMPHOCYTES ABSOLUTE AUTO 2.04 K/mm3 (0.84-5.20); LYMPHOCYTES PERCENT AUTO 42 % (21-46); MONOCYTES ABSOLUTE AUTO 0.46 K/mm3 (0.16-1.47); MONOCYTES PERCENT AUTO 10 % (4-13); Mean Corpuscular HGB Conc 34.1 g/dL (31.5-36.5); Mean Corpuscular Volume 89 fL (80-100); NEUTROPHILS ABSOLUTE AUTO 2.08 K/mm3 (1.96-9.15); NEUTROPHILS PERCENT AUTO 43 % (41-73); NRBC ABSOLUTE 0.00 K/mm3 (0.00-0.02); NRBC Auto 0.0 /100 WBC (0.0-0.2); Platelet Count 261 K/mm3 (150-400); RDW Coefficient Variation 12.5 % (11.7-14.2); RDW Standard Deviation 40.9 fL (35.1-46.3)
[2025-09-10 13:53] LABS: Alanine Aminotransfer (ALT/SGP 27.0 U/L (12-78); Albumin, Blood 3.9 g/dL (3.4-5.0); Albumin/Globulin Ratio 1.3 (0.8-1.8); Anion Gap 7.0 mmol/L (3-11); Aspartate Aminotrans (AST/SGOT 27.0 U/L (12-37); Bilirubin, Total 0.9 mg/dL (0.1-1.0); Blood Urea Nitrogen 21.0 mg/dL (8-24); CO2, Blood 24.0 mmol/L (21-32); Calcium, Blood 9.5 mg/dL (8.5-10.1); Chloride, Blood 106.0 mmol/L (98-108); Creatinine, Blood 1.62 mg/dL (0.40-1.00); Globulin, Blood 3.1 g/dL (2.2-4.0); Glucose, Blood 87.0 mg/dL (70-99); Potassium, Blood 4.1 mmol/L (3.5-5.5); Sodium, Blood 133.0 mmol/L (136-145); Total Protein, Blood 7.0 g/dL (6.4-8.2)
[2025-09-10 17:35] LABS: Influenza A, PCR NEGATIVE (NEGATIVE); Influenza B, PCR NEGATIVE (NEGATIVE); Resp Syncytial Virus, PCR NEGATIVE (NEGATIVE); SARS-Cov-2 (COVID-19) PCR, MMC NEGATIVE (NEGATIVE)
[2025-09-10 22:01] VITALS: BP 147/81
== END 2025-09-10 22:05 | disposition home or self-care (01) ==
LOC: ER 12:52
PROVIDERS: Emergency Medicine
DX: R06.02 Shortness of breath (principal); T33.832A Superficial frostbite of left toe(s), initial encounter; T33.831A Superficial frostbite of right toe(s), initial encounter; T69.9XXA Effect of reduced temperature, unspecified, initial encounter; F15.10 Other stimulant abuse, uncomplicated
CPT/HCPCS: 36415; 71046; 71260; 80053; 83605; 83880; 84484; 85025; 85379; 87040; 87637; 93005; 93010; 99285-25; Q9967